=== PATIENT | male | born 1935 | race Caucasian/White ===

== ENCOUNTER 2017-05-28 12:03 | Inpatient (IN) | payer OTHER ==
[2017-05-28] MEDS ORDERED: FAMOTIDINE 20 MG/50 ML IVPB 50 ML IVPB ONE ×2 (12:20→13:07)
[2017-05-28] MEDS ORDERED: MAG HYDROX/AL HYDROX/SIMETH 30 ML UNIT-DOSE CUP PO ONE (12:20)
[2017-05-28 12:24] VITALS: BMI 33.2
--- NOTE | 2017-05-28 12:35 | PDOC ---
History of Present Illness - General Chief Complaint: Chest Pain Stated Complaint: CHEST PAIN Time Seen by Provider: 05/28/17 12:08 History Source: Patient Exam Limitations: No Limitations - History of Present Illness Initial Comments: 05/28/17 12:24 Patient is a 81M with history of IDDM, HTN, stent and pacemaker placement here today complaining of chest pain since sunday night. The pain is located underneath the sternum radiating to the epigastric area and is described as a burning pain. There is associated dry cough. There is no associated shortness of breath, nausea, vomiting, or diaphoresis. The pain onset at rest and has been waxing and waning. The pain does not increase with inspiration or activity. He denies leg swelling, leg pain, and hemoptysis. Past History - Past Medical History Allergies/Adverse Reactions: Allergies Allergy/AdvReac Type Severity Reaction Status Date / Time No Known Drug Allergies Allergy Verified 02/25/16 16:27 Home Medications: Ambulatory Orders Allopurinol [Zyloprim -] 100 mg PO DAILY 02/25/16 Aspirin [Ecotrin] 81 mg PO DAILY 02/25/16 Atorvastatin Ca [Lipitor] 40 mg PO HS 02/25/16 Cholecalciferol (Vitamin D3) [Vitamin D3] 2,000 unit PO DAILY 02/25/16 Cyanocobalamin [Vitamin B12 -] 1,000 mcg PO DAILY 02/25/16 Glyburide 5 mg PO DAILY 02/25/16 Metformin HCl [Metformin HCl ER] 500 mg PO DAILY 02/25/16 Metoprolol Succinate [Toprol Xl -] 50 mg PO DAILY 02/25/16 Ramipril 10 mg PO DAILY 02/25/16 Insulin Lispro Protamin/Lispro [Humalog Mix 75-25 Vial] 20 unit SQ HS 05/28/17 Insulin Lispro Protamin/Lispro [Humalog Mix 75-25 Vial] 30 unit SQ DAILY Anemia: No Asthma: No Cancer: Yes (COLON; KIDNEY) Cardiac Disorders: Yes (PPM, STENT, ?TN) CVA: No COPD: No CHF: No Dementia: No Diabetes: Yes GI Disorders: Yes (HEMORRHOIDS) Disorders: No HTN: Yes Hypercholesterolemia: Yes Liver Disease: No Seizures: No Thyroid Disease: No - Surgical History Abdominal Surgery: Yes (COLON RESECTION) Appendectomy: No Cardiac Surgery: Yes (STENT X1) Cholecystectomy: No GI Surgery: Yes (COLON RESECTION) Lung Surgery: No Neurologic Surgery: No Orthopedic Surgery: Yes (BILATERA; KNEES) - Psycho/Social/Smoking Cessation Hx Anxiety: No Suicidal Ideation: No Smoking History: Never smoked Have you smoked in the past 12 months: No Hx Alcohol Use: Yes (RARE) Drug/Substance Use Hx: No Substance Use Type: None Hx Substance Use Treatment: No Review of Systems - Review of Systems Comments:: 05/28/17 12:36 GENERAL/CONSTITUTIONAL: No fever or chills. No weakness. HEAD, EYES, EARS, NOSE AND THROAT: No change in vision. No sore throat. CARDIOVASCULAR: Positive for substernal chest pain. Negative for shortness of breath RESPIRATORY: Positive for cough. Negative for wheezing, or hemoptysis. GASTROINTESTINAL: No nausea, vomiting, diarrhea or constipation. GENITOURINARY: No dysuria, frequency, or change in urination. SKIN: No rash NEUROLOGIC: No headache, loss of consciousness, or change in strength/sensation. ALLERGIC/IMMUNOLOGIC: No hives or skin allergy. *Physical Exam - Vital Signs Last Vital Signs Temp Pulse Resp BP Pulse Ox 97.6 F 73 16 150/90 95 05/28/17 12:07 05/28/17 12:07 05/28/17 12:07 05/28/17 12:07 05/28/17 12:07 - Physical Exam Comments: 05/28/17 12:36 GENERAL: Awake, alert, and fully oriented, in no acute distress HEAD: No signs of trauma, normocephalic, atraumatic EYES: EOMI, sclera anicteric, conjunctiva clear ENT: Auricles normal inspection, hearing grossly normal, nares patent, oropharynx clear without exudates. Moist mucosa LUNGS: No distress, speaks full sentences, clear to auscultation bilaterally HEART: Regular rate and rhythm, normal S1 and S2, no murmurs, rubs or gallops, peripheral pulses normal and equal bilaterally. ABDOMEN: Soft, nontender, normoactive bowel sounds. No guarding, no rebound. No masses EXTREMITIES: Normal inspection, Normal range of motion, trace edema to mid- yoder. No clubbing or cyanosis. NEUROLOGICAL: Cranial nerves II through XII grossly intact. Normal speech, no focal sensorimotor deficits. Hearing aide dependent SKIN: Warm, Dry, normal turgor, no rashes or lesions noted. ED Treatment Course - LABORATORY CBC & Chemistry Diagram: 05/28/17 12:21 05/28/17 12:21 - RADIOLOGY Radiology Studies Ordered: Category Date Time Status CHEST X-RAY PORTABLE* [RAD] Stat Radiology 05/28/17 12:19 Ordered Medical Decision Making - Medical Decision Making 05/28/17 12:37 81M with cardiac history and IDDM here today complaining of chest pain. Vital signs normal and stable. Differential diagnosis includes, but is not limited to : gastritis, acs, arrhythmia, CHF. Suspect, given patients exam and history, that this is most likely gastritis. Will treat with maalox and pepcid. Will do ACS workup. EKG shows atrial paced rhythm, normal rate, normal axis, no t wave abnormalities , normal pr and qtc intervals. 05/28/17 13:26 Pain not relieved with maalox and pepcid. Trop .65. BP 128/80. Given 1g mg, ASA 162, nitro and heparin 05/28/17 18:02 Nitro and heparin drip started. Transferred to [facility]. *DC/Admit/Observation/Transfer Diagnosis at time of Disposition: Elevated troponin I level - Discharge Dispostion Condition at time of disposition: Stable Admit: Yes - Referrals Referrals: Deshaun Kapadia MD [Primary Care Provider] -
[2017-05-28 12:48] LABS: INR 1.06 (0.82-1.09); PROTHROMBIN TIME (PATIENT) 11.8 SEC (10.2-13.0)
[2017-05-28 12:52] LABS: ALBUMIN 3.6 g/dl (3.5-5.0); ALK PHOS 92 U/L (32-92); ANION GAP 10 (8-16); BILIRUBIN,TOTAL 0.9 mg/dl (0.2-1.0); CO2 25 mmol/L (22-28); CPK 192 IU/L (39-308); CREATININE 1.6 mg/dl (0.6-1.3); MAGNESIUM 1.5 mg/dL (1.8-2.4); SGOT/AST 30 U/L (10-42); SGPT/ALT 34 U/L (10-40); TOT PROT 6.8 g/dl (6.4-8.3)
[2017-05-28 12:54] LABS: GLUCOSE,RANDOM 523 mg/dl (74-106)
[2017-05-28 12:55] LABS: BASOPHIL 0.3 % (0-2.0); EOSINOPHIL 2.8 % (0-4.5); MCHC 34.7 g/dl (32.0-35.9); MEAN CELL VOLUME 89.5 fl (80-96); MEAN PLT VOLUME 8.9 fl (7.5-11.1); NEUTROPHILS 69.1 % (42.8-82.8); PLATELET COUNT 155 K/MM3 (134-434); RDW 13.3 % (11.9-15.9); WHITE BLOOD COUNT 7.8 K/mm3 (4.0-10.8)
--- NOTE | 2017-05-28 13:05 | PDOC ---
Attending Attestation - Resident Resident Name: LeobardocaterinaElia - ED Attending Attestation I have performed the following: I have examined & evaluated the patient, The case was reviewed & discussed with the resident, I agree w/resident's findings & plan, Exceptions are as noted - HPI HPI: 05/28/17 13:04 81 yo M h/o DM, HTN, HLD He presents to the ER accompanied by due to chest pain Symptoms were initially intermittent and small (2-3/10) on Sunday and Sunday Symptoms resolved Today at approximately 10 am he noted a recurrence of his chest pain Pt states pain is stronger and is constant No radiation to the back or jaw No shortness of breath No diaphoresis No fevers, chills, cough 05/28/17 15:14 - Physicial Exam PE: 05/28/17 13:04 RRR CTA Epigastrium non tender to palpation - Medical Decision Making 05/28/17 13:37 Laboratory Tests 05/28/17 12:21 BUN 29 H Creatinine 1.6 H Troponin I 0.65 H* Call placed to Cardiology SLN given Will initiate heparin CXR: nml mediastinum, ? retrocardiac opacity (no symptoms of pneumonia) Cardiology requests transfer to tele at [facility] 05/28/17 14:07 Call placed to Steffi Awaiting call back 05/28/17 15:[address] Reyes Admit to his service Telemetry (per Dr Raines's recommendation) 05/28/17 16:[address] Reyes's office He would like patient to now be admitted to the hospitalist service case reviewed with Dr. riddle and Hillary I have requested that this patient's PE and troponin be followed up closely Discharge Disposition - Diagnosis Elevated troponin I level - Discharge Dispostion Condition at time of disposition: Stable Last Admission D/C Date: 10/28/12 Admit: Yes - Referrals Critical Care Total Critical Care Time (in minutes): 60 Critical Care Statement: The care of this patient involved high complexity decision making to prevent further life threatening deterioration of the patient 's condition and/or to evaluate & treat vital organ system(s) failure or risk of failure.
[2017-05-28] MEDS ORDERED: MAG HYDROX/AL HYDROX/SIMETH 30 ML UNIT-DOSE CUP ONE (13:07)
[2017-05-28 13:08] LABS: TROPONIN I 0.65 ng/ml (0.00-0.05)
[2017-05-28] MEDS ORDERED: ASPIRIN 81 MG CHEWABLE TABLETS PO ONE (13:08)
[2017-05-28] MEDS ORDERED: MAGNESIUM SULF 50% (8.12 MEQ/2 ML-1 GM VIAL) IVPB ONE ×2 (13:16→17:56)
[2017-05-28] MEDS ORDERED: ASPIRIN 81 MG CHEWABLE TABLETS ONE (13:17)
[2017-05-28] MEDS ORDERED: NITROGLYCERIN SUBLINGUAL 1/150 0.4 MG TAB ONE ×3 (13:31→13:55)
[2017-05-28] MEDS ORDERED: HEPARIN - 25,000 UNIT in SODIUM CHLORIDE 495 ML IV SCH (13:45)
[2017-05-28] MEDS ORDERED: HEPARIN NA (PORCINE) 5,000 UNITS/ML 1ML VIAL ONE (13:49)
[2017-05-28] MEDS ORDERED: HEPARIN INFUSION - 500 ML IVPB ONE (13:49)
[2017-05-28] MEDS ORDERED: INSULIN REGULAR HUMAN 100 UNITS/ML *VIAL IVPUSH ONE (13:57)
[2017-05-28] MEDS ORDERED: HEPARIN NA (PORCINE) 5,000 UNITS/ML 1ML VIAL IVPUSH ONE (13:58)
[2017-05-28] MEDS ORDERED: ATORVASTATIN CA 80 MG TABLET (FP) PO ONE (14:08)
[2017-05-28] MEDS ORDERED: ATORVASTATIN CA 80 MG TABLET (FP) ONE (14:12)
[2017-05-28] MEDS ORDERED: INSULIN REGULAR HUMAN 100 UNITS/ML *VIAL ONE (14:13)
[2017-05-28] MEDS ORDERED: NITROGLYCERIN 25MG/D5W 250ML 250 ML IVPB SCH (14:15)
[2017-05-28] MEDS: NITROGLYCERIN IVPB SCH (14:25)
[2017-05-28] MEDS: DEXTROSE IVPB SCH (14:25)
[2017-05-28] MEDS ORDERED: WATER IVPB ONE ×2 (14:33→14:36)
[2017-05-28] MEDS ORDERED: DEXTROSE 5% IVPB ONE ×2 (14:33→14:36)
[2017-05-28] MEDS ORDERED: NITROGLYCERIN IVPB ONE ×2 (14:33→14:36)
--- NOTE | 2017-05-28 14:47 | CON.CARD ---
Consult Consult Specialty:: Cardiology Referred by:: Deshaun Kapadia MD Reason for Consultation:: Chest pain, subendocardial ischemia - History of Present Illness Chief Complaint: Chest and epigastric discomfort History of Present Illness: 81 yo male h/o CAD s/p [place], PCI (Stent), angina pectoris, diastolic dysfunction, sick sinus syndrome post PPM, HTN/HCVD, hyperlipidemia, type 2 DM, CKD, anemia presented to [facility] with non-radiating retrosternal and epigastric burning without associated dyspnea, near or true syncope, orthopnea, PND, LE edema, palpitations starting Sunday, trop 0.65. - History Source History Provided By: Patient Limitations to Obtaining History: No Limitations - Past Medical History Cardio/Vascular: Yes: CAD, HTN, Hyperlipdemia, [place] Renal/: Yes: Renal Inusuff Endocrine: Yes: Diabetes Mellitus - Past Surgical History Past Surgical History: Yes: Stent - Alcohol/Substance Use Hx Alcohol Use: Yes (RARE) - Smoking History Smoking history: Never smoked Have you smoked in the past 12 months: No Home Medications - Allergies Allergies/Adverse Reactions: Allergies Allergy/AdvReac Type Severity Reaction Status Date / Time No Known Drug Allergies Allergy Verified 02/25/16 16:27 - Home Medications Home Medications: Ambulatory Orders Allopurinol [Zyloprim -] 100 mg PO DAILY 02/25/16 Aspirin [Ecotrin] 81 mg PO DAILY 02/25/16 Atorvastatin Ca [Lipitor] 40 mg PO HS 02/25/16 Cholecalciferol (Vitamin D3) [Vitamin D3] 2,000 unit PO DAILY 02/25/16 Cyanocobalamin [Vitamin B12 -] 1,000 mcg PO DAILY 02/25/16 Glyburide 5 mg PO DAILY 02/25/16 Metformin HCl [Metformin HCl ER] 500 mg PO DAILY 02/25/16 Metoprolol Succinate [Toprol Xl -] 50 mg PO DAILY 02/25/16 Ramipril 10 mg PO DAILY 02/25/16 Insulin Lispro Protamin/Lispro [Humalog Mix 75-25 Vial] 20 unit SQ HS 05/28/17 Insulin Lispro Protamin/Lispro [Humalog Mix 75-25 Vial] 30 unit SQ DAILY Review of Systems - Review of Systems Cardiovascular: reports: Chest Pain Vital Signs: Vital Signs Temperature 97.6 F 05/28/17 12:07 Pulse Rate 77 09/11/17 14:25 Respiratory Rate 23 05/28/17 14:25 Blood Pressure 122/86 05/28/17 14:25 O2 Sat by Pulse Oximetry (%) 96 05/28/17 14:25 Constitutional: Yes: No Distress, Calm Neck: Yes: Supple Respiratory: Yes: Regular, CTA Bilaterally Gastrointestinal: Yes: Normal Bowel Sounds, Soft, Abdomen, Obese Cardiovascular: Yes: Regular Rate and Rhythm JVD: No Carotid Bruit: No Heart Sounds: Yes: S1, S2 Edema: No - Other Data Labs, Other Data: CBC, BMP 05/28/17 12:21 05/28/17 12:21 INR, PTT INR 1.06 (0.82-1.09) 05/28/17 12:21 Troponin, BNP 05/28/17 12:21 Troponin I 0.65 H* Troponin, BNP 05/28/17 12:21 Troponin I 0.65 H* A-V paced @ 73 Imaging - Results Chest X-ray: Report Reviewed (LLL retrocardiac opacity, mild pulm venous congestion) Problem List - Problems (1) Coronary artery disease Code(s): I25.10 - ATHSCL HEART DISEASE OF [place] CORONARY ARTERY W/O ANG PCTRS Qualifiers: Coronary Disease-Associated Artery/Lesion type: [place] artery [place] vs. transplanted heart: [place] heart Associated angina: with unstable angina Qualified Code(s): I25.110 - Atherosclerotic heart disease of [place] coronary artery with unstable angina pectoris (2) S/P coronary artery stent placement Code(s): Z95.5 - PRESENCE OF CORONARY ANGIOPLASTY IMPLANT AND GRAFT (3) Unstable angina pectoris Code(s): I20.0 - UNSTABLE ANGINA (4) Subendocardial ischemia Code(s): I24.8 - OTHER FORMS OF ACUTE ISCHEMIC HEART DISEASE (5) Diastolic dysfunction without heart failure Code(s): I51.9 - HEART DISEASE, UNSPECIFIED (6) Hyperlipidemia LDL goal <70 Code(s): E78.5 - HYPERLIPIDEMIA, UNSPECIFIED (7) Type 2 diabetes mellitus Code(s): E11.9 - TYPE 2 DIABETES MELLITUS WITHOUT COMPLICATIONS Qualifiers: Chronic kidney disease stage: stage 3 (moderate) (8) Pacemaker Code(s): Z95.0 - PRESENCE OF CARDIAC PACEMAKER (9) SSS (sick sinus syndrome) Code(s): I49.5 - SICK SINUS SYNDROME (10) Chronic kidney disease (CKD) Code(s): N18.9 - CHRONIC KIDNEY DISEASE, UNSPECIFIED Qualifiers: Chronic kidney disease stage: stage 3 (moderate) Qualified Code(s): N18.3 - Chronic kidney disease, stage 3 (moderate) (11) Hypertensive cardiovascular disease Code(s): I11.9 - HYPERTENSIVE HEART DISEASE WITHOUT HEART FAILURE Qualifiers: Heart failure presence: without heart failure Qualified Code(s): I11.9 - Hypertensive heart disease without heart failure Assessment/Plan 1. Chest pain with CAD h/o PCI (stent), unstable angina, subendocardial ischemic injury 2. Diastolic dysfunction without failure 3. Sick sinus syndrome post PPM ([employer]) 4. HTN/HCVD 5. Mixed hyperlipidemia 6. Type 2 DM 7. CKD Stage IIIB P:1. Cycle cardiac enzymes to document peak, check BNP, TSH, lipid profile, Ha1c 2. Persantine Myoview to evaluate severity of CAD 3. Echocardiogram to assess ventricular and valve function 4. Placed on heparin gtt and Plavix 75 qd, continue Toprol XL 50 qd, ASA 81 qd, Lipitor 40 qd, hold Altace pending renal stabilization 5. May require LHC +/- PCI depending on degree of ischemia 6. Thank you for consultative opportunity
[2017-05-28] MEDS ORDERED: CLOPIDOGREL BISULFATE 75 MG TABLET (FP) PO SCH (15:00)
[2017-05-28] MEDS ORDERED: METOPROLOL SUCCINATE 50 MG TAB.SR.24H (FP) PO SCH (15:00)
[2017-05-28] MEDS ORDERED: HEMOQUE TEST 1 EACH EACH ONE ×2 (15:11→15:17)
[2017-05-28] MEDS ORDERED: NITROGLYCERIN IVPB SCH (15:15)
[2017-05-28] MEDS ORDERED: DEXTROSE IVPB SCH (15:15)
[2017-05-28] MEDS ORDERED: METOPROLOL SUCCINATE 50 MG TAB.SR.24H (FP) ONE (15:35)
[2017-05-28] MEDS ORDERED: CLOPIDOGREL BISULFATE 75 MG TABLET (FP) ONE (15:40)
--- NOTE | 2017-05-28 17:39 | PDOC ---
Heart Score/ECG Review - History History: Highly suspicious - Electrocardiogram EKG: Normal - Age Age: >/= 65 - Risk Factors Risk Factors Heart Score: Yes Hx Hypertension, Yes Hx Diabetes, Yes Hx Obesity Based on the list above the patient has:: >/=3 risk factors or Hx atherosclerotic disease - Troponin Troponin: >/=3x normal limit - Score Heart Score - Total: 8 ED Treatment Course - LABORATORY CBC & Chemistry Diagram: 05/28/17 12:21 05/28/17 12:21 - ADDITIONAL ORDERS Additional order review: Laboratory Results 05/28/17 05/28/17 05/28/17 15:23 12:56 12:21 INR PTT (Actin FS) Sodium 130 L Potassium 4.2 Chloride 95 L Carbon Dioxide 25 Anion Gap 10 BUN 29 H Creatinine 1.6 H Creat Clearance w eGFR 41.90 POC Glucometer [phone] Random Glucose 523 H* D Calcium 9.0 Magnesium 1.5 L Total Bilirubin 0.9 D AST 30 D ALT 34 D Alkaline Phosphatase 92 D Creatine Kinase 192 Creatine Kinase Index 4.9 CK-MB (CK-2) 9.411 H Troponin I 0.65 H* Total Protein 6.8 Albumin 3.6 Acetone, Qual Negative 05/28/17 05/28/17 12:21 12:20 INR 1.06 PTT (Actin FS) 27.5 Sodium Potassium Chloride Carbon Dioxide Anion Gap BUN Creatinine Creat Clearance w eGFR POC Glucometer Random Glucose Calcium Magnesium Total Bilirubin AST ALT Alkaline Phosphatase Creatine Kinase Creatine Kinase Index CK-MB (CK-2) Troponin I Total Protein Albumin Acetone, Qual 05/28/17 05/28/17 15:23 12:21 RBC 5.04 MCV 89.5 MCHC 34.7 RDW 13.3 MPV 8.9 Neutrophils % 69.1 Lymphocytes % 17.5 Monocytes % 10.3 H Eosinophils % 2.8 Basophils % 0.3 POC Glucometer [phone] - Medications Given in the ED: ED Medications Discontinued Medications Generic Name Dose Route Start Last Admin Trade Name Freq PRN Reason Stop Dose Admin Al Hydroxide/Mg Hydroxide 30 ml 05/28/17 12:20 05/28/17 13:10 Mylanta Oral Suspension - PO 05/28/17 12:21 30 ml ONCE ONE Administration Aspirin 162 mg 05/28/17 13:08 05/28/17 13:25 Asa - PO 05/28/17 13:09 162 mg ONCE ONE Administration Atorvastatin Calcium 80 mg 05/28/17 14:08 05/28/17 14:15 Lipitor - PO 05/28/17 14:09 80 mg ONCE ONE Administration Clopidogrel Bisulfate 75 mg 05/28/17 15:00 05/28/17 15:41 Plavix - PO 75 mg DAILY ROOPA Administration Heparin Sodium (Porcine) 5,000 unit 05/28/17 13:58 05/28/17 13:58 Heparin - IVPUSH 05/28/17 13:59 5,000 unit NOW ONE Administration Famotidine/Sodium Chloride 50 mls @ 100 mls/hr 05/28/17 12:20 05/28/17 13:10 Pepcid 20 Mg Premixed Ivpb - IVPB 05/28/17 12:49 100 mls/hr ONCE ONE Administration Heparin Sodium (Porcine) 25, 500 mls @ 20 mls/hr 05/28/17 13:45 05/28/17 13:58 000 unit/ Sodium Chloride IV 20 mls/hr TITR ROOPA Administration Protocol 1,000 UNIT/HR Nitroglycerin/Dextrose 250 mls @ 6 mls/hr 05/28/17 14:15 05/28/17 15:42 Nitroglycerin 25mg/D5w 250ml IVPB Not Given TITR ROOPA 10 MCG/MIN Nitroglycerin 50,000 mcg/ 1,000 mls @ 12 mls/hr 05/28/17 14:33 05/28/17 14:57 Dextrose IVPB 06/01/17 01:52 Not Given NOW ONE 10 MCG/MIN Nitroglycerin 50,000 mcg/ 250 mls @ 3 mls/hr 05/28/17 14:36 05/28/17 14:15 Dextrose IVPB 06/01/17 01:52 3 mls/hr NOW ONE Administration 10 MCG/MIN Nitroglycerin/Dextrose 250 mls @ 3 mls/hr 05/28/17 15:15 05/28/17 15:44 Nitroglycerin 50mg/D5w 250ml IVPB Not Given TITR ROOPA 10 MCG/MIN Nitroglycerin/Dextrose 250 mls @ 3 mls/hr 05/28/17 15:20 05/28/17 14:25 Nitroglycerin 50mg/D5w 250ml IVPB 3 mls/hr TITR ROOPA Administration 10 MCG/MIN Insulin Human Regular 5 units 05/28/17 13:57 05/28/17 14:09 Novolin R Vial *For Ivpush Or Iv Drip Only* IVPUSH 05/28/17 13:58 5 units ONCE ONE Administration Magnesium Sulfate 1 gm 05/28/17 13:16 05/28/17 13:26 Magnesium Sulfate IVPB 05/28/17 13:17 1 gm ONCE ONE Administration Metoprolol Succinate 50 mg 05/28/17 15:00 05/28/17 15:39 Toprol Xl - PO 50 mg DAILY ROOPA Administration Medical Decision Making - Medical Decision Making 05/28/17 17:38 Will admit to hospitalist service Case reviewed with Dr Carter *DC/Admit/Observation/Transfer Diagnosis at time of Disposition: Elevated troponin I level - Discharge Dispostion Condition at time of disposition: Good Admit: Yes - Referrals Referrals: Deshaun Kapadia MD [Primary Care Provider] - - Patient Instructions - Post Discharge Activity
[2017-05-28] MEDS ORDERED: HEPARIN NA (PORCINE) 5,000 UNITS/ML 1ML VIAL IVPUSH PRN (18:09)
--- NOTE | 2017-05-28 18:15 | HP ---
CHIEF COMPLAINT:Chest pain PCP:Eric market news reporter: Mariela HISTORY OF PRESENT ILLNESS: 81M extensive PMH including CAD s/p [place] s/p PCI with stent x1 17 years ago, sick sinus syndrome s/p PPM, angina pectoris, distolic dysfunction HTN HLD presents to the ED with sub sternal chest pain. He states the pain started sunday morning. Sunday morning he woke up had breakfast and starting having the chest pain. He states he went to the store and it got better then he was reading the newspaper when his pain started again. His pain has been fluctuating since then. Today his pain got significantly worse and this prompted him to come to the ED. He denies radiation of the pain to the arm or jaw. He states at sometimes the pain radiates downwards to the epigastrium. He states when he layed down flat it relieved his pain for a short while. He denies PND or recent lower extremity edema. denies orthopnea. He denies nausea vomiting fevers chills or shortness of breath. Denies urinary symptoms or change in bowel habits. Denies syncopal or pre-syncopal symptoms denied palpitations and states he only had chest pain since sunday. (Patient told market news reporter had palpitations since sunday) He states 2 weeks ago he URI/ viral symptoms which has resolved per patient. The patient is currently still having chest pain. In ED found to have NSTEMI with elevated troponin and hypomagnesemia. He was given magnesium started on heparin gtt and nitroglycerin gtt for intractable chest pain. Seen by cardiology who recommended hep gtt and continuing beta isidoro statin anti platelets echo and persantine myoview. CXR showed possible left retrocardiac infiltrate and pulmonary vascular congestion. Recent Travel:Denies PAST MEDICAL HISTORY:as per above including obstructive sleep apnea obesity CKD colon ca renal ca hypertensive cardiovascular disease PAST SURGICAL HISTORY:s/p colon cancer resection. s/p right nephrectomy Social History: Smoking:in his teens quit since then Alcohol:Denies Drugs: Denies Family History:father at age 93 from liver Ca mother around age 79 from complications of alzheimer's per Allergies No Known Drug Allergies Allergy (Verified 02/25/16 16:27) HOME MEDICATIONS: Home Medications Medication Instructions Recorded Allopurinol [Zyloprim -] 100 mg PO DAILY 02/25/16 Aspirin [Ecotrin] 81 mg PO DAILY 02/25/16 Atorvastatin Ca [Lipitor] 40 mg PO HS 02/25/16 Cholecalciferol (Vitamin D3) 1,000 unit PO DAILY 02/25/16 [Vitamin D3] Cyanocobalamin [Vitamin B12 -] 1,000 mcg PO DAILY 02/25/16 Glyburide 5 mg PO DAILY 02/25/16 [place] 3 ethyl esters 1 gm po daily Metoprolol Succinate [Toprol Xl -] 50 mg PO DAILY 02/25/16 Ramipril 10 mg PO DAILY 02/25/16 Insulin Lispro Protamin/Lispro 20 unit SQ HS 05/28/17 [Humalog Mix 75-25 Vial] Insulin Lispro Protamin/Lispro 30 unit SQ DAILY 05/28/17 [Humalog Mix 75-25 Vial] REVIEW OF SYSTEMS CONSTITUTIONAL: Absent: fever, chills, diaphoresis, generalized weakness, malaise, loss of appetite, weight change HEENT: Absent: rhinorrhea, nasal congestion, throat pain, throat swelling, difficulty swallowing, mouth swelling, ear pain, eye pain, visual changes CARDIOVASCULAR: Absent: , syncope, palpitations, irregular heart rate, lightheadedness, peripheral edema Present: chest pain RESPIRATORY: Absent: cough, shortness of breath, dyspnea with exertion, orthopnea, wheezing, stridor, hemoptysis GASTROINTESTINAL: Absent: abdominal pain, abdominal distension, nausea, vomiting, diarrhea, constipation, melena, hematochezia GENITOURINARY: Absent: dysuria, frequency, urgency, hesitancy, hematuria, flank pain, genital pain MUSCULOSKELETAL: Absent: myalgia, arthralgia, joint swelling, back pain, neck pain SKIN: Absent: rash, itching, pallor HEMATOLOGIC/IMMUNOLOGIC: Absent: easy bleeding, easy bruising, lymphadenopathy, frequent infections ENDOCRINE: Absent: unexplained weight gain, unexplained weight loss, heat intolerance, cold intolerance NEUROLOGIC: Absent: headache, focal weakness or paresthesias, dizziness, unsteady gait, seizure, mental status changes, bladder or bowel incontinence PSYCHIATRIC: Absent: anxiety, depression, suicidal or homicidal ideation, hallucinations. PHYSICAL EXAMINATION GENERAL: Awake, alert, and fully oriented, in no acute distress. EYES: Pupils equal, round and reactive to light, extraocular movements intact EARS, NOSE, THROAT: Moist mucous membranes. NECK: Normal range of motion, supple without JVD LUNGS: Breath sounds equal, clear to auscultation bilaterally. No wheezes, and no crackles. HEART: Regular rate and rhythm, normal S1 and S2 without murmur. No JVD appreciated ABDOMEN: Soft, nontender, not distended, normoactive bowel sounds, no guarding, no rebound MUSCULOSKELETAL: Normal range of motion at all joints. No CVA tenderness. UPPER EXTREMITIES: 2+ pulses, warm, well-perfused. No cyanosis. No clubbing. No peripheral edema. LOWER EXTREMITIES: faint DP pulses, warm, well-perfused. No calf tenderness. Trace pitting edema L>R NEUROLOGICAL: Cranial nerves II-XII grossly intact. Normal speech. Laboratory Results - last 24 hr 05/28/17 05/28/17 05/28/17 12:20 12:21 12:21 WBC 7.8 RBC 5.04 Hgb 15.6 D Hct 45.1 MCV 89.5 MCH 31.0 MCHC 34.7 RDW 13.3 Plt Count 155 MPV 8.9 Neutrophils % 69.1 Lymphocytes % 17.5 Monocytes % 10.3 H Eosinophils % 2.8 Basophils % 0.3 INR 1.06 PTT (Actin FS) 27.5 Sodium Potassium Chloride Carbon Dioxide Anion Gap BUN Creatinine Creat Clearance w eGFR POC Glucometer Random Glucose Calcium Magnesium Total Bilirubin AST ALT Alkaline Phosphatase Creatine Kinase Creatine Kinase Index CK-MB (CK-2) Troponin I Total Protein Albumin Acetone, Qual 05/28/17 05/28/17 05/28/17 12:21 12:56 15:23 WBC RBC Hgb Hct MCV MCH MCHC RDW Plt Count MPV Neutrophils % Lymphocytes % Monocytes % Eosinophils % Basophils % INR PTT (Actin FS) Sodium 130 L Potassium 4.2 Chloride 95 L Carbon Dioxide 25 Anion Gap 10 BUN 29 H Creatinine 1.6 H Creat Clearance w eGFR 41.90 POC Glucometer [phone] Random Glucose 523 H* D Calcium 9.0 Magnesium 1.5 L Total Bilirubin 0.9 D AST 30 D ALT 34 D Alkaline Phosphatase 92 D Creatine Kinase 192 Creatine Kinase Index 4.9 CK-MB (CK-2) 9.411 H Troponin I 0.65 H* Total Protein 6.8 Albumin 3.6 Acetone, Qual Negative 05/28/17 18:14 WBC RBC Hgb Hct MCV MCH MCHC RDW Plt Count MPV Neutrophils % Lymphocytes % Monocytes % Eosinophils % Basophils % INR PTT (Actin FS) Sodium Potassium Chloride Carbon Dioxide Anion Gap BUN Creatinine Creat Clearance w eGFR POC Glucometer 239 Random Glucose Calcium Magnesium Total Bilirubin AST ALT Alkaline Phosphatase Creatine Kinase Creatine Kinase Index CK-MB (CK-2) Troponin I Total Protein Albumin Acetone, Qual CXR: mild pulmonary vascular congestion possible left retrocardiac infiltrate may represent pneumonia in the appropriate clinical setting. can get PA/Lateral if needed for better evaluation EKG: A-V Paced 11/09/2016 Echo: Normal LV size and fxn, mild LAE, mild AR, MR, NV, TR 03/07/2017 Regadenoson Myoview: Small to moderate inferior infarct with small thom-infarct ischemia, LVEF 62 Patient reports having underwent pharmacologic stress testing approximately 2 months ago, cardiology to obtain copy of study for review from office, further testing depending on clinical response. ASSESSMENT/PLAN: 81M with multiple medical problems presents to the ED with chest pain found to have an NSTEMI. chest pain-CAD with stent and [place] in past now with NSTEMI: history of angina pectoris Admit to telemetry heparin gtt trend troponins to document peak persantine myoview echo lipid panel lipitor HbA1c control fingerstick glucose TSH Plavix BNP aspirin restart metoprolol 50mg XL po daily cardiology consult appreciated cardiology to get records from office possible [facility] sick sinus syndrome: s/p PPM diastolic dysfunction/heart failure with preserved ejection fraction: f/u echo no need for diuretics at this time does not seem to be in exacerbation at this time HTN/Hypertensive cardiovascular disease: cotninue metoprolol 50mg po XL daily hold rampiril for now per cardiology until renal stabilization but Cr at baseline per EMR will consider restarting RONALDO tomorrow HLD: restart statin lipid profile DM2: restarted on glyburide per cardiology ISS ACHS BGM ACHS if BGM out of control will consider starting long acting basal insulin history of anemia: Hb 15.6 obsturctive sleep apnea: had 2 sleep studies supposed to sleep with CPAP at night patient does not use machine: used it 3 times and never used it again CKD: stage 3B Cr 1.6 seems to be at baseline per EMR will continue to trend Cr Obesity: counselled on weight loss and benefits of light exercise history of renal Ca and Colon Ca s/p colon surgery and right nephrectomy: not currently active outpatient follow up. Possible GERD: Pepcid BID PPx: SCDs/heparin gtt Pepcid BID PT consult FEN: No IVF hypomagnesemia: given 2GM IV Magnesium and will recheck electrolytes in AM low sodium/diabetic diet NPO past midnight for stress test Case discussed with attending Dr. Gerardo Home meds verified with patient Visit type - Emergency Visit Emergency Visit: Yes ED Registration Date: 05/28/17 Care time: The patient presented to the Emergency Department on the above date and was hospitalized for further evaluation of their emergent condition. - New Patient This patient is new to me today: Yes Date on this admission: 05/28/17 - Critical Care Critical Care patient: No
[2017-05-28] MEDS: glyBURIDE 5 MG TABLET (UD) PO SCH (18:30)
[2017-05-28] MEDS: HEPARIN - 25,000 UNIT in SODIUM CHLORIDE 495 ML IV SCH ×2 (18:30→21:14)
[2017-05-28] MEDS: INSULIN SLIDING SCALE (NOVOLOG) 1 VIAL SQ SCH ×2 (18:31→22:00)
--- NOTE | 2017-05-28 19:10 | PN ---
Teaching Attending Note Name of Resident: Ramon Carter ATTENDING PHYSICIAN STATEMENT I saw and evaluated the patient. I reviewed the resident's note and discussed the case with the resident. I agree with the resident's findings and plan as documented. SUBJECTIVE: 79 yo M with Pmhx. of CAD s/p NH w PCI Stent X1 17 years ago, Sick Sinus Syndrome s/p PPM, angina pectoria, dystolic dysfunction, HTN, HLD, who presents with chest pain at [place] and was transferred to [facility]. Notes pain started on Sunday and has been intermittent since then. States that occasionally pain radiates to his abdomen. Notes chest pain is improved. No shortness of breath. No cough or sputum production. No fevers or chills. OBJECTIVE: Physical: VS: Vital Signs Period Temp Pulse Resp BP Sys/Mon Pulse Ox Last 24 Hr 97.6 F-97.8 F 71-79 16-23 106-150/57-90 94-96 GEN: NAD, resting in bed HEENT: NCAT, PERRL, throat without erythema or exudates CARD: RRR S1, S2 RESP: CTAB ABD:BSX4, NTD to palpation EXT: - C/C/E CBCD WBC 7.8 K/mm3 (4.0-10.8) 05/28/17 12:21 RBC 5.04 M/mm3 (4.00-5.60) 05/28/17 12:21 Hgb 15.6 GM/dl (11.7-16.9) D 05/28/17 12:21 Hct 45.1 % (35.4-49) 05/28/17 12:21 MCV 89.5 fl (80-96) 05/28/17 12:21 MCHC 34.7 g/dl (32.0-35.9) 05/28/17 12:21 RDW 13.3 % (11.9-15.9) 05/28/17 12:21 Plt Count 155 K/MM3 (134-434) 05/28/17 12:21 MPV 8.9 fl (7.5-11.1) 05/28/17 12:21 CMP Sodium 130 mmol/L (136-145) L 05/28/17 12:21 Potassium 4.2 mmol/L (3.5-5.1) 05/28/17 12:21 Chloride 95 mmol/L (98-107) L 05/28/17 12:21 Carbon Dioxide 25 mmol/L (22-28) 05/28/17 12:21 Anion Gap 10 (8-16) 05/28/17 12:21 BUN 29 mg/dl (7-18) H 05/28/17 12:21 Creatinine 1.6 mg/dl (0.6-1.3) H 05/28/17 12:21 Creat Clearance w eGFR 41.90 (>60) 05/28/17 12:21 Random Glucose 523 mg/dl (74-106) H* D 05/28/17 12:21 Calcium 9.0 mg/dl (8.4-10.2) 05/28/17 12:21 Total Bilirubin 0.9 mg/dl (0.2-1.0) D 05/28/17 12:21 AST 30 U/L (10-42) D 05/28/17 12:21 ALT 34 U/L (10-40) D 05/28/17 12:21 Alkaline Phosphatase 92 U/L (32-92) D 05/28/17 12:21 Total Protein 6.8 g/dl (6.4-8.3) 05/28/17 12:21 Albumin 3.6 g/dl (3.5-5.0) 05/28/17 12:21 CARDIAC ENZYMES Creatine Kinase 192 IU/L (39-308) 05/28/17 12:21 Troponin I 0.65 ng/ml (0.00-0.05) H* 05/28/17 12:21 EKG- 93 AV Paced CXR: Mild pulmonary vasc. congestion LLL ? Opacity ASSESSMENT AND PLAN: 81 yo F with pmhx of CAD s/p NH PCI w stent X1, PPM SSS, angina, Diastolic Dysfxn, HTN, HLD, who presents with chest pain being admitted for NSTEMI 1.) NSTEMI - Plavix, ASA, Hep gtt. - C/W BB, 02, Nitro gtt - Trend Trop/Ekg - Monitor on tele - FU TSH, Lipid Panel, A1c - Statin - NPO - Echo - Cardiology on Consult - Appreciate reccs 2.) CAD S/P NH - C/W meds 3.) DURAN on CKD - BAse Cr 1.4-1.5 - Hold Altace - Avoid Nephrotoxins 4.) DM II - RAISS - FS 5.) Hyponatremia - Monitor 6.) DVt Ppx - Low Risk - Hep. Gtt Place in [employer]
[2017-05-28] MEDS ORDERED: ATORVASTATIN CA 40 MG TABLET (FP) PO SCH (22:00)
[2017-05-28] MEDS: FAMOTIDINE 20 MG/50 ML IVPB 50 ML IVPB SCH (22:22)
[2017-05-29 00:26] LABS: TROPONIN I 14.32 ng/ml (0.00-0.05)
[2017-05-29 02:07] LABS: TROPONIN I 24.13 ng/ml (0.00-0.05)
--- NOTE | 2017-05-29 02:16 | HOSP ---
Physical Examination Vital Signs: Vital Signs Temperature 98.5 F 05/29/17 02:10 Pulse Rate 71 05/29/17 02:10 Respiratory Rate 20 05/29/17 02:10 Blood Pressure 105/59 05/29/17 02:10 O2 Sat by Pulse Oximetry (%) 94 L 05/28/17 21:03 Hospitalist Encounter Assessment: * Daytime resident signed out to follow up the troponin level. Initial troponin was 0.65, repeat troponin elevated to 14.1. Went to examine the patient. He was comfortably sleeping. When he woke up, he mentioned he has chest pain, located centrally, 2/10 in intensity, pressure in quality, non radiating, no aggravating or relieving factors. Denies sob, palpitation, cough, abdominal pain , nausea or vomiting. * Stat EKG was done which was found to be the same as prior EKG (no significant changes found), paced rhythm. * Call placed to Dr. White @ 2:18am, awaiting call back. * Loading dose of Plavix 300mg given stat. Vitals: BP: 118/67mmHg; RR-15 P:88 bpm Temp-98 F General: Elderly male, lying comfortably in bed, awake, alert, in no acute distress. Chest: B/L lungs clear, no added sounds CVS: Regular, S1, S2 , no murmu Abdomen: Soft, non tender, no organomegaly. Ext: No peripheral edema. A/P NSTEMI Continue Heparin drip, loading dose of aspirin and plavix given Trend troponin. Case discussed with Dr. López. Visit type - Emergency Visit Emergency Visit: Yes ED Registration Date: 05/28/17 Care time: The patient presented to the Emergency Department on the above date and was hospitalized for further evaluation of their emergent condition. - New Patient This patient is new to me today: Yes Date on this admission: 05/28/17 - Critical Care Critical Care patient: No
[2017-05-29] MEDS ORDERED: CLOPIDOGREL BISULFATE 300 MG TABLET PO ONE (02:23)
[2017-05-29] MEDS: glyBURIDE 5 MG TABLET (UD) PO SCH (06:06)
[2017-05-29] MEDS: INSULIN SLIDING SCALE (NOVOLOG) 1 VIAL SQ SCH ×4 (06:54→22:48)
--- NOTE | 2017-05-29 07:54 | PN ---
Progress Note (short form) - Note Progress Note: Chief Complaint: Events noted, notes reviewed, denies any further chest or epigastric discomfort, denies any dyspnea History of Present Illness: Seen and examined on telemetry. Events noted, notes reviewed, denies any further chest or epigastric discomfort, denies any dyspnea Troponin I and CPK levels noted, EKG noted paced rhythm Plan to proceed with [facility] coronary angiography, risk, benefits and alternatives were reviewed in detail Medications: Current Medications Aspirin (Ecotrin -) 81 mg PO DAILY [facility] Atorvastatin Calcium (Lipitor -) 40 mg PO HS [facility] Clopidogrel Bisulfate (Plavix -) 75 mg PO DAILY [facility] Glyburide (Diabeta -) 5 mg PO BID@0700,1630 [facility] Last Admin: 05/29/17 06:06 Dose: Not Given Heparin Sodium (Porcine) (Heparin -) 1,000 unit IVPUSH PRN PRN PRN Reason: Heparin Heparin Sodium (Porcine) (Heparin -) 5,000 unit IVPUSH PRN PRN PRN Reason: Heparin Nitroglycerin/Dextrose (Nitroglycerin 50mg/D5w 250ml) 250 mls @ 3 mls/hr IVPB TITR [place] PRN Reason: 10 MCG/MIN Last Admin: 05/28/17 14:25 Dose: 3 mls/hr Heparin Sodium (Porcine) 25, (000 unit/ Sodium Chloride) 500 mls @ 20 mls/hr IV TITR [place]; 1,000 UNIT/HR PRN Reason: Protocol Last Admin: 05/28/17 21:14 Dose: 20 mls/hr Famotidine/Sodium Chloride (Pepcid 20 Mg Premixed Ivpb -) 50 mls @ 100 mls/hr IVPB BID [facility] Last Admin: 05/28/17 22:22 Dose: 100 mls/hr Insulin Aspart (Novolog Vial Sliding Scale -) 1 vial SQ ACHS [place] PRN Reason: Protocol Last Admin: 05/29/17 06:54 Dose: 4 units Metoprolol Succinate (Toprol Xl -) 50 mg PO DAILY [facility] - Review of Systems Constitutional: denies: Chills, Fever Cardiovascular: As Noted Above Respiratory: denies: Cough or Sputum Production Gastrointestinal: denies: Nausea, Vomiting, Diarrhea, Constipation or Abdominal Discomfort Musculoskeletal: No symptoms Reported Neurological: denies: Dizziness or Headaches Vital Signs: Last Vital Signs Temp Pulse Resp BP Pulse Ox 98.2 F 72 14 114/70 94 L 05/29/17 09:00 05/29/17 09:00 05/29/17 09:00 05/29/17 09:00 05/28/17 21:03 Intake & Output 05/26/17 05/27/17 05/28/17 05/29/17 23:59 23:59 23:59 23:59 Intake Total 276 Output Total 800 Balance -524 Weight 225 lb Constitutional: No Distress, Calm Neck: Supple Negative JVD No Bruit Respiratory: Clear to A&P Bilaterally Cardiovascular: S1 S2 Regular Rate and Rhythm Grade 2/6 [place] Gastrointestinal: Soft Benign Normal Bowel Sounds Ext: No Edema Labs: Troponin, BNP 05/28/17 05/28/17 05/28/17 12:21 18:45 18:45 Troponin I 0.65 H* 14.32 H* B-Natriuretic Peptide 1943.90 H 05/29/17 05/29/17 05/29/17 01:00 07:00 07:00 Troponin I 24.13 H* D 25.80 H* 26.20 H* B-Natriuretic Peptide CBC, BMP 05/29/17 07:00 05/29/17 07:00 INR, PTT INR 1.06 (0.82-1.09) 05/28/17 12:21 Assessment/Plan ASSESSMENT: 1. CAD post PCI (stent), unstable angina, sub-endocardial ischemic/NSTEMI, plan to proceed 2. Diastolic dysfunction with class I NYHA classification LV congestive heart failure, compensated/euvolemic 3. Sick sinus syndrome post PPM ([employer]'s device) 4. HTN 5. Diabetes mellitus 6. Hypercholesterolemia, mixed dyslipidemia 7. CKD PLAN: 1. Continue Toprol XL 2. Add ACEI or ARBS unless it is absolutely contraindicated 3. Continue Heparin, ASA and Brilinta (D/C Plavix) 4. Continue Lipitor 5. Cancel MPI study and proceed with [facility]& coronary angiography for further evaluation of extent of CAD and possible intervention (plan to transfer to [facility] in AM) 6. Echocardiography to assess ventricular and valve functions Roland Guzman M.D.
[2017-05-29 08:30] LABS: BASOPHIL 0.7 % (0-2.0); EOSINOPHIL 1.8 % (0-4.5); MCH 30.1 pg (25.7-33.7); MCHC 33.6 g/dl (32.0-35.9); MEAN CELL VOLUME 89.6 fl (80-96); MEAN PLT VOLUME 8.8 fl (7.5-11.1); NEUTROPHILS 69.3 % (42.8-82.8); PLATELET COUNT 128 K/MM3 (134-434); RDW 14.5 % (11.9-15.9); WHITE BLOOD COUNT 8.6 K/mm3 (4.0-10.0)
[2017-05-29 09:08] LABS: ALBUMIN 3.1 g/dl (3.4-5.0); BILIRUBIN,TOTAL 0.8 mg/dL (0.2-1.0); CALCIUM 8.6 mg/dL (8.5-10.1); CREATININE 1.4 mg/dL (0.7-1.3); SGOT/AST 117 U/L (15-37); TOT PROT 6.4 g/dl (6.4-8.2)
[2017-05-29 09:12] LABS: ALK PHOS 88 U/L (45-117); ANION GAP 9 (8-16); CO2 28 mmol/L (21-32); GLUCOSE,RANDOM 224 mg/dL (74-106); MAGNESIUM 1.7 mg/dL (1.8-2.4); PHOSPHOROUS 2.2 mg/dL (2.5-4.9); SGPT/ALT 43 U/L (12-78)
[2017-05-29 09:25] LABS: TROPONIN I 26.2 ng/ml (0.00-0.05)
[2017-05-29] MEDS: FAMOTIDINE 20 MG/50 ML IVPB 50 ML IVPB SCH ×2 (09:57→22:49)
[2017-05-29] MEDS: ASPIRIN COATED 81 MG TABLET.EC PO SCH (09:57)
[2017-05-29] MEDS: METOPROLOL SUCCINATE 50 MG TAB.SR.24H (FP) PO SCH (09:57)
[2017-05-29] MEDS ORDERED: CLOPIDOGREL BISULFATE 75 MG TABLET (FP) PO SCH (10:00)
[2017-05-29] MEDS ORDERED: ASPIRIN 81 MG CHEWABLE TABLETS PO SCH (10:00)
[2017-05-29 10:15] LABS: INR 1.09 (0.82-1.09)
[2017-05-29 10:17] LABS: ACTIVATED PTT 34.6 SECONDS (26.9-34.4)
[2017-05-29] MEDS ORDERED: TICAGRELOR 60 MG TABLET PO SCH (10:45)
[2017-05-29] MEDS: HEPARIN - 25,000 UNIT in SODIUM CHLORIDE 495 ML IV SCH ×2 (10:59→18:35)
[2017-05-29] MEDS: HEPARIN NA (PORCINE) 5,000 UNITS/ML 1ML VIAL IVPUSH PRN (10:59)
--- NOTE | 2017-05-29 11:58 | PN ---
Progress Note (short form) - Note Progress Note: PULMONARY CONSULTATION DICTATED 05/29/17 IMP ACUTE NSTEMI CHF CKD ASHD S/P STENT L RETROCARDIC OPACITY H/O RCC S/P R NEPHRECTOMY SSS S/P PPM HTN DM PLAN O2 BETABLOCKERS CARDIAC CATH F/U CHEST X-RAY IF NO CHANGE SUGGEST CHEST CT MONITOR PLT CT DR VILLAGRAN Problem List - Problems (1) Chronic kidney disease (CKD) Code(s): N18.9 - CHRONIC KIDNEY DISEASE, UNSPECIFIED Qualifiers: Chronic kidney disease stage: stage 3 (moderate) Qualified Code(s): N18.3 - Chronic kidney disease, stage 3 (moderate) (2) Coronary artery disease Code(s): I25.10 - ATHSCL HEART DISEASE OF [place] CORONARY ARTERY W/O ANG PCTRS Qualifiers: Coronary Disease-Associated Artery/Lesion type: [place] artery [place] vs. transplanted heart: [place] heart Associated angina: with unstable angina Qualified Code(s): I25.110 - Atherosclerotic heart disease of [place] coronary artery with unstable angina pectoris (3) Diastolic dysfunction without heart failure Code(s): I51.9 - HEART DISEASE, UNSPECIFIED (4) Elevated troponin I level Code(s): R74.8 - ABNORMAL LEVELS OF OTHER SERUM ENZYMES (5) Hypertensive cardiovascular disease Code(s): I11.9 - HYPERTENSIVE HEART DISEASE WITHOUT HEART FAILURE Qualifiers: Heart failure presence: without heart failure Qualified Code(s): I11.9 - Hypertensive heart disease without heart failure (6) S/P coronary artery stent placement Code(s): Z95.5 - PRESENCE OF CORONARY ANGIOPLASTY IMPLANT AND GRAFT (7) SSS (sick sinus syndrome) Code(s): I49.5 - SICK SINUS SYNDROME (8) Type 2 diabetes mellitus Code(s): E11.9 - TYPE 2 DIABETES MELLITUS WITHOUT COMPLICATIONS Qualifiers: Chronic kidney disease stage: stage 3 (moderate) (9) NSTEMI (non-ST elevated myocardial infarction) Code(s): I21.4 - NON-ST ELEVATION (NSTEMI) MYOCARDIAL INFARCTION
--- NOTE | 2017-05-29 11:58 | EKG ---
Test Reason : Blood Pressure : / mmHG Vent. Rate : 069 BPM Atrial Rate : 069 BPM P-R Int : 132 ms QRS Dur : 200 ms QT Int : 474 ms P-R-T Axes : 048 -86 078 degrees QTc Int : 507 ms Atrial-sensed ventricular-paced rhythm V1 RHYTHM STRIPREVEALS ARTIFACT CANNOT ENTIRELY RULE OUT RUN OF WIDE COMPLEX TACHYCARDIA WHEN COMPARED WITH ECG OF 28-MAY-2017 12:08, VENT. RATE HAS DECREASED BY 4 BPM REPEAT EKG IF CLINICALLY INDICATED Confirmed by MARA ROBERTS MD ([id number]) on 05/29/2017 11:58:32 AM Referred By: Confirmed By:MARA ROBERTS MD
--- NOTE | 2017-05-29 12:11 | EKG ---
Test Reason : Blood Pressure : / mmHG Vent. Rate : 073 BPM Atrial Rate : 073 BPM P-R Int : 128 ms QRS Dur : 198 ms QT Int : 450 ms P-R-T Axes : 036 -83 086 degrees QTc Int : 495 ms Atrial-sensed ventricular-paced rhythm ABNORMAL ECG WHEN COMPARED WITH ECG OF 14-OCT-2012 10:52, VENT. RATE HAS DECREASED BY 12 BPM CLINICAL CORRELATION IS RECOMMENDED Confirmed by MARA ROBERTS MD ([id number]) on 05/29/2017 12:11:02 PM Referred By: KING Confirmed By:MARA ROBERTS MD
[2017-05-29] MEDS: RAMIPRIL 5 MG CAPSULE (FP) PO SCH (12:32)
--- NOTE | 2017-05-29 13:25 | CONS ---
PULMONARY CONSULTATION DATE OF CONSULTATION: 05/29/2017 REFERRING PHYSICIAN: Ashley Garcia MD HISTORY OF PRESENT ILLNESS: The patient is a 81-year-old white male with past medical history of ASHD status post [place], status post stent in 2000; angina pectoris; diastolic dysfunction; sick sinus syndrome status post permanent pacemaker; hypertension; hypertensive cardiovascular disease; hyperlipidemia; type 2 diabetes mellitus; chronic kidney disease; history of renal cell carcinoma status post right nephrectomy in 2005; anemia, presented to [facility] with complaint of 2-day history of intermittent chest pain. Patient states that he was doing well until Sunday when he started noticing some chest discomfort and pressure which lasted a few minutes and then subsided. Then, it happened again, lasting an hour. He went to a function on Sunday night and felt okay again. He woke up on Sunday morning, again having intermittent chest pain and pressure. He did not seek medical attention. On Sunday, he started developing severe chest pain. At which time, presented to his doctor and subsequently transferred to [facility] for further evaluation. Patient was noted to have elevated cardiac enzymes, evaluated by Cardiology. The patient is scheduled for a cardiac catheterization. Patient denies any nausea, vomiting, or diaphoresis. Denies any hemoptysis. He has a history of smoking, quit many years ago. He is a retired blocklayer. There is no history of DVT or PE in the past. PAST MEDICAL HISTORY: Again includes diastolic dysfunction; ASHD status post [place], status post stent; sick sinus syndrome status post PPM; hypertension; hypertensive cardiovascular disease; hyperlipidemia; type 2 diabetes; chronic kidney disease; history of right nephrectomy secondary to renal cell carcinoma; and anemia. SOCIAL HISTORY: Again, a history of smoking, quit years ago. Retired blocklayer. CURRENT MEDICATIONS: Include Altace, heparin, Pepcid, Toprol, NovoLog, nitroglycerin, Brilinta, Ecotrin, DiaBeta. PHYSICAL EXAMINATION: General: The patient is a well-developed, well-nourished male, awake, alert, in no acute distress. Vital Signs: He is afebrile. Blood pressure 114/70, respiratory rate is at 14, O2 saturation 95% on 2 L. HEENT: Normocephalic, atraumatic. Neck: Supple. Heart: Regular. S1, S2. Chest: Clear. Abdomen: Soft. Bowel sounds positive. Extremities: Trace bilateral extremity edema. LABORATORY DATA: WBC is 8.6, hemoglobin 14.1, hematocrit 42, platelet count 128,000. INR is 1.09. Chemistries: BUN 24, creatinine 1.4. Troponin is 26.2. Chest x-ray: Poor inspiratory effort. Lower retrocardiac opacity. Mild pulmonary vascular congestion. IMPRESSION: 1. Acute [id number] myocardial infarction. 2. Diastolic dysfunction. 3. Sick sinus syndrome status post pacemaker. 4. Hypertension. 5. Left retrocardiac opacity. 6. Hypercholesterolemia. 7. . 8. Chronic kidney disease. 9. History of renal cell carcinoma status post right nephrectomy. PLAN: Beta-blockers, nasal O2, cardiac catheterization as per Cardiology. Also, obtain followup chest x-ray and echocardiogram. JAKE VILLAGRAN M.D. LANRE/[id number]
[2017-05-29] MEDS ORDERED: NAPH,MB-DB/K PH,MBDB POWDER PACKET PO ONE (13:55)
[2017-05-29] MEDS ORDERED: MAGNESIUM SULF 50% (8.12 MEQ/2 ML-1 GM VIAL) IVPB ONE (13:55)
[2017-05-29] MEDS ORDERED: INSULIN DETEMIR 100 UNITS/ML MDV SQ ONE ×2 (14:04→16:39)
--- NOTE | 2017-05-29 14:18 | PN ---
Teaching Attending Note Name of Resident: Luz Elena Fry ATTENDING PHYSICIAN STATEMENT I saw and evaluated the patient. I reviewed the resident's note and discussed the case with the resident. I agree with the resident's findings and plan as documented. SUBJECTIVE: no CP , at time of evaluation at 9 am. had mild CP earlier in am nO SOB OBJECTIVE: NAD , AAOX3 CV : RRR, no JVD Lungs CTAB ext : no edema Abd : Obese , soft , NT, ND < NL BS ASSESSMENT AND PLAN: mild acute distress due to pain. shallow breathing. HEENT: dry MM, JVD . CV: RRR Lungs : R base crackles Ext: no edema . no erythema, no axillary sweating . ASSESSMENT AND PLAN: 81 y/o gentleman with h/o HTN, CAD s/p stenting, PPM, and DM who presented with CP and was found to have NSTEMI 1- NSTEMI: EKG reviewed . Trp 26 . no sx and signs of heart failure . CP resolved on Nitro gtt - Cont Heparin gtt and Nitro gtt. - cont antiplatelets . - follow Echo - cont BB . BP and HR are within goal - for cath tomorrow - started on ramipril, if Echo shows NL EF , will hold ramipril to avoid renal compromise with cath . - repeat EKG - cont statin 2- DM : Sugar of 500 on admission. - cont SSI - give 20 of levemir now. NPO tomorrow for cath. ( large amount of mixed insulin at home ) - cont glyburide , change to once daily and hold if NPO 3- Dispo : for transfer to [facility] for cath tomorrow
[2017-05-29] MEDS ORDERED: NITROGLYCERIN 25MG/D5W 250ML 250 ML IVPB SCH (14:30)
[2017-05-29] MEDS: DEXTROSE IVPB SCH (15:20)
[2017-05-29] MEDS: NITROGLYCERIN IVPB SCH (15:20)
[2017-05-29] MEDS: NITROGLYCERIN 25MG/D5W 250ML 250 ML IVPB SCH (15:40)
[2017-05-29 16:25] LABS: TROPONIN I 16.5 ng/ml (0.00-0.05)
[2017-05-29] MEDS ORDERED: FUROSEMIDE 40 MG/4 ML INJECTABLE VIAL IVPUSH ONE (16:57)
[2017-05-29] MEDS ORDERED: NITROGLYCERIN IVPB SCH (17:00)
[2017-05-29] MEDS ORDERED: DEXTROSE IVPB SCH (17:00)
--- NOTE | 2017-05-29 20:19 | PN ---
Physical Exam: SUBJECTIVE: Patient seen and examined Patient seen in the am, said he had a brief 1/10 chest painthat went away in the morning. In the afternoon, patient complained of SOB, worse on lying down OBJECTIVE: Vital Signs Period Temp Pulse Resp BP Sys/Mon Pulse Ox Last 24 Hr 97.3 F-98.5 F 70-74 14-20 100-148/59-79 94-94 GENERAL: The patient is awake, alert, and fully oriented, in mild respiratory distress, in cardiac position with intranasal cannular sating at 98 on 3l. HEAD: Normal with no signs of trauma. EYES: PERRL, extraocular movements intact, sclera anicteric, conjunctiva clear. No ptosis. ENT:R ear hearing aid, nares patent, oropharynx clear without exudates, moist mucous membranes. LUNGS: R Basal crackles, accessory muscle use. HEART: Displaced apex, Regular rate and rhythm, S1, S2 soft murmur, ABDOMEN: Soft, nontender, full, normoactive bowel sounds, no guarding, no rebound, no hepatosplenomegaly, no masses. EXTREMITIES: 2+ pulses, warm, well-perfused, no edema. NEUROLOGICAL: Cranial nerves II through XII grossly intact. Normal speech, gait not observed. PSYCH: Normal mood, normal affect. Laboratory Results - last 24 hr 05/28/17 05/28/17 05/28/17 18:45 18:45 18:45 WBC RBC Hgb Hct MCV MCH MCHC RDW Plt Count MPV Neutrophils % Lymphocytes % Monocytes % Eosinophils % Basophils % INR PTT (Actin FS) Sodium Potassium Chloride Carbon Dioxide Anion Gap BUN Creatinine Creat Clearance w eGFR POC Glucometer Random Glucose Hemoglobin A1c % 9.4 H D Calcium Phosphorus Magnesium Total Bilirubin AST ALT Alkaline Phosphatase Creatine Kinase Creatine Kinase Index CK-MB (CK-2) Troponin I B-Natriuretic Peptide 1943.90 H Total Protein Albumin Triglycerides Cholesterol Total LDL Cholesterol HDL Cholesterol TSH 3.23 05/28/17 05/28/17 05/28/17 18:45 18:45 22:44 WBC RBC Hgb Hct MCV MCH MCHC RDW Plt Count MPV Neutrophils % Lymphocytes % Monocytes % Eosinophils % Basophils % INR PTT (Actin FS) 50.0 H D Sodium Potassium Chloride Carbon Dioxide Anion Gap BUN Creatinine Creat Clearance w eGFR POC Glucometer 202 Random Glucose Hemoglobin A1c % Calcium Phosphorus Magnesium Total Bilirubin AST ALT Alkaline Phosphatase Creatine Kinase 499 H Creatine Kinase Index 4.3 CK-MB (CK-2) 21.470 H Troponin I 14.32 H* B-Natriuretic Peptide Total Protein Albumin Triglycerides 914 H Cholesterol 186 Total LDL Cholesterol 84 HDL Cholesterol 29 TSH 05/29/17 05/29/17 05/29/17 01:00 06:00 07:00 WBC 8.6 RBC 4.69 Hgb 14.1 Hct 42.0 MCV 89.6 MCH 30.1 MCHC 33.6 RDW 14.5 Plt Count 128 L MPV 8.8 Neutrophils % 69.3 Lymphocytes % 14.4 D Monocytes % 13.8 H Eosinophils % 1.8 Basophils % 0.7 D INR PTT (Actin FS) Sodium Potassium Chloride Carbon Dioxide Anion Gap BUN Creatinine Creat Clearance w eGFR POC Glucometer 229 Random Glucose Hemoglobin A1c % Calcium Phosphorus Magnesium Total Bilirubin AST ALT Alkaline Phosphatase Creatine Kinase 641 H Creatine Kinase Index 3.6 CK-MB (CK-2) 23.113 H Troponin I 24.13 H* D B-Natriuretic Peptide Total Protein Albumin Triglycerides Cholesterol Total LDL Cholesterol HDL Cholesterol TSH 05/29/17 05/29/17 05/29/17 07:00 07:00 07:00 WBC RBC Hgb Hct MCV MCH MCHC RDW Plt Count MPV Neutrophils % Lymphocytes % Monocytes % Eosinophils % Basophils % INR 1.09 PTT (Actin FS) 34.6 H D Sodium 137 Potassium 4.3 Chloride 100 Carbon Dioxide 28 Anion Gap 9 BUN 24 H Creatinine 1.4 H Creat Clearance w eGFR 48.89 POC Glucometer Random Glucose 224 H Hemoglobin A1c % Calcium 8.6 Phosphorus 2.2 L Magnesium 1.7 L Total Bilirubin 0.8 AST 117 H D ALT 43 D Alkaline Phosphatase 88 Creatine Kinase Creatine Kinase Index CK-MB (CK-2) Troponin I 25.80 H* B-Natriuretic Peptide Total Protein 6.4 Albumin 3.1 L D Triglycerides Cholesterol Total LDL Cholesterol HDL Cholesterol [facility] 05/29/17 05/29/17 05/29/17 07:00 12:30 14:30 WBC RBC Hgb Hct MCV MCH MCHC RDW Plt Count MPV Neutrophils % Lymphocytes % Monocytes % Eosinophils % Basophils % INR PTT (Actin FS) Sodium Potassium Chloride Carbon Dioxide Anion Gap BUN Creatinine Creat Clearance w eGFR POC Glucometer 298 Random Glucose Hemoglobin A1c % Calcium Phosphorus Magnesium Total Bilirubin AST ALT Alkaline Phosphatase Creatine Kinase 576 H 428 H Creatine Kinase Index 3.0 2.2 CK-MB (CK-2) 17.464 H 9.791 H Troponin I 26.20 H* 16.50 H* D B-Natriuretic Peptide Total Protein Albumin Triglycerides Cholesterol Total LDL Cholesterol HDL Cholesterol TSH 05/29/17 05/29/17 16:45 17:30 WBC RBC Hgb Hct MCV MCH MCHC RDW Plt Count MPV Neutrophils % Lymphocytes % Monocytes % Eosinophils % Basophils % INR PTT (Actin FS) 49.9 H D Sodium Potassium Chloride Carbon Dioxide Anion Gap BUN Creatinine Creat Clearance w eGFR POC Glucometer 269 Random Glucose Hemoglobin A1c % Calcium Phosphorus Magnesium Total Bilirubin AST ALT Alkaline Phosphatase Creatine Kinase Creatine Kinase Index CK-MB (CK-2) Troponin I B-Natriuretic Peptide Total Protein Albumin Triglycerides Cholesterol Total LDL Cholesterol HDL Cholesterol TSH Active Medications Generic Name Dose Route Start Last Admin Trade Name Freq PRN Reason Stop Dose Admin Aspirin 81 mg 05/29/17 10:00 05/29/17 09:57 Ecotrin - PO 81 mg DAILY ROOP[place] Administration Atorvastatin Calcium 40 mg 05/29/17 22:00 Lipitor - PO HS ROOPA Glyburide 5 mg 05/30/17 07:00 Diabeta - PO DAILY@0700 [place] Heparin Sodium (Porcine) 1,000 unit 05/28/17 18:09 Heparin - IVPUSH PRN PRN Heparin Heparin Sodium (Porcine) 5,000 unit 05/28/17 18:09 05/29/17 10:59 Heparin - IVPUSH 5,000 unit PRN PRN Administration Heparin Heparin Sodium (Porcine) 25, 500 mls @ 20 mls/hr 05/28/17 18:15 05/29/17 18:35 000 unit/ Sodium Chloride IV Not Given TITR ROOP[place] Protocol 1,000 UNIT/HR Famotidine/Sodium Chloride 50 mls @ 100 mls/hr 05/28/17 22:00 05/29/17 09:57 Pepcid 20 Mg Premixed Ivpb - IVPB 100 mls/hr BID [place]OP[place] Administration Nitroglycerin/Dextrose 250 mls @ 6 mls/hr 05/29/17 17:45 05/29/17 15:40 Nitroglycerin 25mg/D5w 250ml IVPB 8 mls/hr TITR [place]OP[place] Administration 10 MCG/MIN Insulin Aspart 1 vial 05/28/17 22:00 09/12/17 17:28 Novolog Vial Sliding Scale - SQ 6 units ACHS [place] Administration Protocol Metoprolol Succinate 50 mg 05/29/17 10:00 05/29/17 09:57 Toprol Xl - PO 50 mg DAILY [place] Administration Ramipril 5 mg 05/29/17 10:45 05/29/17 12:32 Altace - PO 5 mg DAILY [place] Administration Ticagrelor 90 mg 05/29/17 22:00 Brilinta - PO BID [place] ASSESSMENT/PLAN: 81 y/o gentleman with h/o HTN, CAD s/p stenting, PPM, and DM who presented with CP and was found to have NSTEMI #NSTEMI: EKG reviewed- no ST elevation . Troponins now trending down from 26.20 to 16.50 . Cont Heparin gtt and Nitro gtt. cont antiplatelets . Awaiting Echo cont BB resume ramipril (if Echo shows NL EF , will hold ramipril to avoid renal compromise with cath) for cath tomorrow cont statin repeat EKG #Shortness of breath No pedal edema, no JVD unilateral crackles CXR- ordered awaiting reading #DM : Sugar of 500 on admission. - cont SSI - give 20 of levemir now. -NPO tomorrow for cath. ( large amount of mixed insulin at home ) - cont glyburide , change to once daily and hold if NPO 3- Dispo : for transfer to [facility] for cath tomorrow Visit type - Emergency Visit Emergency Visit: Yes ED Registration Date: 05/28/17 Care time: The patient presented to the Emergency Department on the above date and was hospitalized for further evaluation of their emergent condition. - New Patient This patient is new to me today: Yes Date on this admission: 05/29/17 - Critical Care Critical Care patient: No - Discharge Referral Referred to [facility] Med P.C.: No
[2017-05-29] MEDS ORDERED: ATORVASTATIN CA 40 MG TABLET (FP) PO SCH ×2 (22:00→22:45)
[2017-05-29 22:06] LABS: TROPONIN I 18.9 ng/ml (0.00-0.05)
[2017-05-29] MEDS: TICAGRELOR 90 MG TABLET PO SCH (22:48)
[2017-05-30] MEDS: NITROGLYCERIN 25MG/D5W 250ML 250 ML IVPB SCH (00:49)
[2017-05-30 04:34] LABS: TROPONIN I 18.72 ng/ml (0.00-0.05)
[2017-05-30] MEDS: INSULIN SLIDING SCALE (NOVOLOG) 1 VIAL SQ SCH (06:55)
[2017-05-30] MEDS ORDERED: glyBURIDE 5 MG TABLET (UD) PO SCH (07:00)
[2017-05-30 07:33] LABS: BASOPHIL 0.8 % (0-2.0); EOSINOPHIL 1.4 % (0-4.5); MCHC 34.1 g/dl (32.0-35.9); MEAN CELL VOLUME 88.1 fl (80-96); MEAN PLT VOLUME 8.6 fl (7.5-11.1); NEUTROPHILS 68.9 % (42.8-82.8); PLATELET COUNT 122 K/MM3 (134-434); RDW 14.1 % (11.9-15.9); WHITE BLOOD COUNT 6.5 K/mm3 (4.0-10.0)
[2017-05-30 07:53] LABS: ANION GAP 8 (8-16); CALCIUM 8.5 mg/dL (8.5-10.1); CO2 27 mmol/L (21-32); CREATININE 1.3 mg/dL (0.7-1.3); GLUCOSE,RANDOM 259 mg/dL (74-106)
[2017-05-30 08:54] VITALS: BP 110/66; PULSE 74; TEMP 98.2
[2017-05-30] MEDS: FAMOTIDINE 20 MG/50 ML IVPB 50 ML IVPB SCH (09:29)
[2017-05-30] MEDS: RAMIPRIL 5 MG CAPSULE (FP) PO SCH (09:29)
[2017-05-30] MEDS: TICAGRELOR 90 MG TABLET PO SCH (09:29)
[2017-05-30] MEDS: METOPROLOL SUCCINATE 50 MG TAB.SR.24H (FP) PO SCH (09:29)
[2017-05-30] MEDS: HEPARIN - 25,000 UNIT in SODIUM CHLORIDE 495 ML IV SCH (09:30)
[2017-05-30] MEDS: HEPARIN NA (PORCINE) 5,000 UNITS/ML 1ML VIAL IVPUSH PRN (09:30)
[2017-05-30] MEDS: ASPIRIN COATED 81 MG TABLET.EC PO SCH (09:31)
--- NOTE | 2017-05-30 10:44 | EKG ---
Test Reason : Blood Pressure : / mmHG Vent. Rate : 072 BPM Atrial Rate : 072 BPM P-R Int : 142 ms QRS Dur : 198 ms QT Int : 456 ms P-R-T Axes : 072 -89 070 degrees QTc Int : 499 ms Atrial-sensed ventricular-paced rhythm ABNORMAL ECG WHEN COMPARED WITH ECG OF 29-MAY-2017 01:38, VENT. RATE HAS INCREASED BY 3 BPM Confirmed by ESCOBAR DE, MCKENZIE ([id number]) on 05/30/2017 10:43:49 AM Referred By: Zara ABDI Confirmed By:MCKENZIE CODY MD
--- NOTE | 2017-05-30 13:55 | DS ---
Physical Exam: SUBJECTIVE: Patient seen and examined No longer feeling SOB, is able to lie in bed. No chest pain this am. OBJECTIVE: Vital Signs Period Temp Pulse Resp BP Sys/Mon Pulse Ox Last 24 Hr 98.1 F-99.2 F 65-76 16-18 90-148/46-76 94-94 PHYSICAL EXAM GENERAL: The patient is awake, alert, and fully oriented, in no respiratory distress, on cpap prn HEAD: Normal with no signs of trauma. EYES: PERRL, extraocular movements intact, sclera anicteric, conjunctiva clear. No ptosis. ENT:R ear hearing aid, nares patent, oropharynx clear without exudates, moist mucous membranes. LUNGS: R Basal crackles, accessory muscle use. HEART: Displaced apex, Regular rate and rhythm, S1, S2 , ABDOMEN: Soft, nontender, full, normoactive bowel sounds, no guarding, no rebound, no hepatosplenomegaly, no masses. EXTREMITIES: 2+ pulses, warm, well-perfused, no edema. NEUROLOGICAL:No facial droop, Muscle strength 5/5 globally, reflexes 2+ globally , normal tone. R ear hearing aid. Normal speech, gait not observed. PSYCH: Normal mood, normal affect. LABS Laboratory Results - last 24 hr 05/29/17 05/29/17 05/29/17 14:30 16:45 17:30 WBC RBC Hgb Hct MCV MCH MCHC RDW Plt Count MPV Neutrophils % Lymphocytes % Monocytes % Eosinophils % Basophils % PTT (Actin FS) 49.9 H D Sodium Potassium Chloride Carbon Dioxide Anion Gap BUN Creatinine POC Glucometer 269 Random Glucose Calcium Creatine Kinase 428 H Creatine Kinase Index 2.2 CK-MB (CK-2) 9.791 H Troponin I 16.50 H* D 05/29/17 05/29/17 05/30/17 21:00 22:44 03:17 WBC RBC Hgb Hct MCV MCH MCHC RDW Plt Count MPV Neutrophils % Lymphocytes % Monocytes % Eosinophils % Basophils % PTT (Actin FS) Sodium Potassium Chloride Carbon Dioxide Anion Gap BUN Creatinine POC Glucometer 308 Random Glucose Calcium Creatine Kinase 366 H 333 H Creatine Kinase Index 1.6 1.8 CK-MB (CK-2) 6.185 H 6.004 H Troponin I 18.90 H* 18.72 H* 05/30/17 05/30/17 05/30/17 05:35 05:35 05:35 WBC 6.5 RBC 4.56 Hgb 13.7 Hct 40.2 MCV 88.1 MCH 30.0 MCHC 34.1 RDW 14.1 Plt Count 122 L MPV 8.6 Neutrophils % 68.9 Lymphocytes % 14.6 Monocytes % 14.3 H Eosinophils % 1.4 Basophils % 0.8 PTT (Actin FS) 35.3 H Sodium 138 Potassium 3.8 Chloride 103 Carbon Dioxide 27 Anion Gap 8 BUN 21 H Creatinine 1.3 POC Glucometer Random Glucose 259 H Calcium 8.5 Creatine Kinase Creatine Kinase Index CK-MB (CK-2) Troponin I 05/30/17 05:50 WBC RBC Hgb Hct MCV MCH MCHC RDW Plt Count MPV Neutrophils % Lymphocytes % Monocytes % Eosinophils % Basophils % PTT (Actin FS) Sodium Potassium Chloride Carbon Dioxide Anion Gap BUN Creatinine POC Glucometer 247 Random Glucose Calcium Creatine Kinase Creatine Kinase Index CK-MB (CK-2) Troponin I HOSPITAL COURSE: 81 y/o gentleman with h/o HTN, CAD s/p stenting, PPM, and DM who presented with CP and was found to have NSTEMI. His troponins at presentation were 0.65 and peaked at 26.20 then started trend down, last value was 18.72. His CK-MB peaked at 23.113 and trended down to 6.004. He presented with RPG of 523 and hyponatremia of 130 that he was managed for. His initial CXR (05/28/17) showed what appeared to be pulmonary vascular congestion, with possible retrocardiac infiltrates. On 05/29/17 the CXR showed Cardiomegaly, no evidence of pulm consolidations or CHF. While he was here, he was anticoagulated using heparin and was on nitroglycerin drip. He was also on SS insulin and 20U of levemir. He was continued on his home medications of Atorvastatin 40mg PO daily, ASA 81 mg daily and metoprolol XR 50mg dly. He was put on ramipril 5mg PO dly and ticagrelor 90mg bid. He also received ivpb pepcid 20mg. He had one episode of shortness of breath on 05/29/17 but no features of CHF, that resolved after a bolus of lasix 20mg iv stat. His other chronic problems include obstructive sleep apnea, obesity, hyperlipidemia, renal cancer with s/p R nephrectomy, colon cancer s/p colon surgery. On 05/30/17 he was transfered to [facility] for cardiac catheterization in a stable condition. Date of Admission:05/28/17 Date of Discharge: 05/30/17 Minutes to complete discharge: 45 Discharge Summary Reason For Visit: CHEST PAIN Current Active Problems Chronic kidney disease (CKD) (Acute) Coronary artery disease (Acute) Diastolic dysfunction without heart failure (Acute) Elevated troponin I level (Acute) Hyperlipidemia LDL goal <70 (Acute) Hypertensive cardiovascular disease (Acute) NSTEMI (non-ST elevated myocardial infarction) (Acute) Pacemaker (Acute) S/P coronary artery stent placement (Acute) SSS (sick sinus syndrome) (Acute) Subendocardial ischemia (Acute) Type 2 diabetes mellitus (Acute) Unstable angina pectoris (Acute) Condition: Stable - Instructions Referrals: Deshaun Kapadia MD [Primary Care Provider] - Disposition: TRANSFER ACUTE CARE/OTHER HOSP - Home Medications Comprehensive Discharge Medication List: Ambulatory Orders Allopurinol [Zyloprim -] 100 mg PO DAILY 02/25/16 Aspirin [Ecotrin] 81 mg PO DAILY 02/25/16 Atorvastatin Ca [Lipitor] 40 mg PO HS 02/25/16 Cholecalciferol (Vitamin D3) [Vitamin D3] 1,000 unit PO DAILY 02/25/16 Cyanocobalamin [Vitamin B12 -] 1,000 mcg PO DAILY 02/25/16 Glyburide 5 mg PO DAILY 02/25/16 Metoprolol Succinate [Toprol Xl -] 50 mg PO DAILY 02/25/16 Ramipril 10 mg PO DAILY 02/25/16 Insulin Lispro Protamin/Lispro [Humalog Mix 75-25 Vial] 20 unit SQ HS 05/28/17 Insulin Lispro Protamin/Lispro [Humalog Mix 75-25 Vial] 30 unit SQ DAILY [place]-3 Acid Ethyl Esters 1 gm PO DAILY 05/28/17 This patient is new to me today: No Emergency Visit: Yes ED Registration Date: 05/28/17 Care time: The patient presented to the Emergency Department on the above date and was hospitalized for further evaluation of their emergent condition. Critical Care patient: No - Discharge Referral Referred to [facility] Med P.C.: No
--- NOTE | 2017-05-30 16:36 | PN ---
Teaching Attending Note Name of Resident: Luz Elena Fry ATTENDING PHYSICIAN STATEMENT Patient was transferred to [facility] by the activity therapy specialist for coronary angiography
--- NOTE | 2017-05-30 18:35 | PN ---
Progress Note (short form) - Note Progress Note: Patient underwent R&LHC demonstrating normal filling pressures, 99% mid LAD in- segment restenosis proximal to previous stent with GITA I flow, nonobstructive LCx and hyperdominant RCA, mild LV dysfunction with anteroapical HK, he underwent implant [employer] [place] 3.0 x 22 mm MARIELLA post-dilated with non- compliant 3.25 x 20 mm balloon at 14 CLAIRE with improvement of flow, Mynx deployed right [employer] access site, no complications, stable for routine post PCI care and d/c in AM. Problem List - Problems (1) Coronary artery disease Code(s): I25.10 - ATHSCL HEART DISEASE OF [place] CORONARY ARTERY W/O ANG PCTRS Qualifiers: Coronary Disease-Associated Artery/Lesion type: [place] artery [place] vs. transplanted heart: [place] heart Associated angina: with unstable angina Qualified Code(s): I25.110 - Atherosclerotic heart disease of [place] coronary artery with unstable angina pectoris (2) S/P coronary artery stent placement Code(s): Z95.5 - PRESENCE OF CORONARY ANGIOPLASTY IMPLANT AND GRAFT (3) Unstable angina pectoris Code(s): I20.0 - UNSTABLE ANGINA (4) Diastolic dysfunction without heart failure Code(s): I51.9 - HEART DISEASE, UNSPECIFIED (5) Hyperlipidemia LDL goal <70 Code(s): E78.5 - HYPERLIPIDEMIA, UNSPECIFIED (6) Type 2 diabetes mellitus Code(s): E11.9 - TYPE 2 DIABETES MELLITUS WITHOUT COMPLICATIONS Qualifiers: Chronic kidney disease stage: stage 3 (moderate) (7) Pacemaker Code(s): Z95.0 - PRESENCE OF CARDIAC PACEMAKER (8) SSS (sick sinus syndrome) Code(s): I49.5 - SICK SINUS SYNDROME (9) Chronic kidney disease (CKD) Code(s): N18.9 - CHRONIC KIDNEY DISEASE, UNSPECIFIED Qualifiers: Chronic kidney disease stage: stage 3 (moderate) Qualified Code(s): N18.3 - Chronic kidney disease, stage 3 (moderate) (10) Hypertensive cardiovascular disease Code(s): I11.9 - HYPERTENSIVE HEART DISEASE WITHOUT HEART FAILURE Qualifiers: Heart failure presence: without heart failure Qualified Code(s): I11.9 - Hypertensive heart disease without heart failure (11) NSTEMI (non-ST elevated myocardial infarction) Code(s): I21.4 - NON-ST ELEVATION (NSTEMI) MYOCARDIAL INFARCTION
--- NOTE | 2017-05-31 13:20 | EKG ---
Test Reason : Blood Pressure : / mmHG Vent. Rate : 072 BPM Atrial Rate : 072 BPM P-R Int : 146 ms QRS Dur : 190 ms QT Int : 454 ms P-R-T Axes : 085 268 061 degrees QTc Int : 497 ms Atrial-sensed ventricular-paced rhythm ABNORMAL ECG WHEN COMPARED WITH ECG OF 29-MAY-2017 14:43, NO SIGNIFICANT CHANGE WAS FOUND Confirmed by PATRICK CHAUDHARI MD ([id number]) on 05/31/2017 1:19:51 PM Referred By: Confirmed By:PATRICK CHAUDHARI MD
== END 2017-05-30 09:38 | disposition short-term general hospital (02) | DRG 281 ==
LOC: FER 12:03 → J4W 17:50
PROVIDERS: ADMIT Internal Medicine; ATTEND Internal Medicine
DX: I21.4 Non-ST elevation (NSTEMI) myocardial infarction (principal); E87.1 Hypo-osmolality and hyponatremia; I13.0 Hypertensive heart and chronic kidney disease with heart failure and stage 1 through stage 4 chronic kidney disease, or unspecified chronic kidney disease; I50.32 Chronic diastolic (congestive) heart failure; N17.9 Acute kidney failure, unspecified; E78.5 Hyperlipidemia, unspecified; I25.10 Atherosclerotic heart disease of native coronary artery without angina pectoris; I25.2 Old myocardial infarction; Z98.61 Coronary angioplasty status; Z95.0 Presence of cardiac pacemaker; Z85.038 Personal history of other malignant neoplasm of large intestine; Z79.4 Long term (current) use of insulin; D64.9 Anemia, unspecified; E66.9 Obesity, unspecified; Z85.528 Personal history of other malignant neoplasm of kidney; E83.42 Hypomagnesemia; G47.33 Obstructive sleep apnea (adult) (pediatric); E11.22 Type 2 diabetes mellitus with diabetic chronic kidney disease; N18.3 Chronic kidney disease, stage 3 (moderate); E78.2 Mixed hyperlipidemia; Z68.33 Body mass index [BMI] 33.0-33.9, adult
CPT/HCPCS: 36415; 71010-TC; 80048; 80053; 80061; 82009; 82553; 83036; 83721; 83735; 83880; 84100; 84443; 84484; 85025; 85610; 85730; 93005; 93010; 93306-TC; 99285-25; J1644

== ENCOUNTER 2019-05-12 12:50 | Emergency (ER) | payer OTHER ==
[2019-05-12] MEDS ORDERED: ACETAMINOPHEN 325 MG TABLET (FP) PO ONE (13:51)
[2019-05-12 14:17] VITALS: BP 131/83; PULSE 88; TEMP 98; BMI 32.0
[2019-05-12] MEDS ORDERED: IBUPROFEN 400 MG TABLET (FP) PO ONE ×2 (14:19)
--- NOTE | 2019-05-12 14:25 | PDOC ---
History of Present Illness - General Chief Complaint: Injury Stated Complaint: WRIST PAIN History Source: Patient Exam Limitations: No Limitations - History of Present Illness Initial Comments: 05/12/19 14:20 83 yo male h/o HTN HLD pacemaker, here s/p trip and fall 3 days ago. pt state he was in [place] watching some guys do work, and he lost his balance. fell back into a tree, then fell forward with outstretched left hand and knee. happened 3 days ago. no pain and swelling left wrist. pt is right hand dominant. no elbow or shoulder pain. has had prior knee surgery, no pain now . ambulating without diffiuclty. no head trauma. no hip pain . left wrist pain is worse with flex/ ext, no numbness or tingling. took tylenol 3 hours ago min relief. Past History - Past Medical History Allergies/Adverse Reactions: Allergies Allergy/AdvReac Type Severity Reaction Status Date / Time No Known Drug Allergies Allergy Verified 02/25/16 16:27 Home Medications: Ambulatory Orders Allopurinol [Zyloprim -] 100 mg PO DAILY 02/25/16 Aspirin [Ecotrin] 81 mg PO DAILY 02/25/16 Cholecalciferol (Vitamin D3) [Vitamin D3] 1,000 unit PO DAILY 02/25/16 Cyanocobalamin [Vitamin B12 -] 1,000 mcg PO DAILY 02/25/16 Metoprolol Succinate [Toprol Xl -] 50 mg PO DAILY 02/25/16 Ramipril 10 mg PO DAILY 02/25/16 [place]-3 Acid Ethyl Esters 1 gm PO DAILY 05/28/17 Acetaminophen [Tylenol -] 1,000 mg PO PRN PRN 05/12/19 Ezetimibe [Zetia -] 10 mg PO DAILY 05/12/19 Insulin (Novolog 70/30) [Novolog Mix 70/30 Vial] 32 ml SQ DAILY 05/12/19 Insulin NPH Hum/Reg Insulin Hm [Novolin 70-30 Flexpen] 26 unit SQ HS 05/12/19 Ticagrelor [Brilinta] 60 mg PO ASDIR 05/12/19 Anemia: No Asthma: No Cancer: Yes (COLON; KIDNEY) Cardiac Disorders: Yes (PPM, STENT, ?VT) CVA: No COPD: Yes CHF: No Dementia: No Diabetes: Yes GI Disorders: Yes (HEMORRHOIDS) Disorders: No HTN: Yes Hypercholesterolemia: Yes Liver Disease: No Seizures: No Thyroid Disease: No - Surgical History Abdominal Surgery: Yes (COLON RESECTION) Appendectomy: No Cardiac Surgery: Yes (pacemaker) Cholecystectomy: No Lung Surgery: No Neurologic Surgery: No Orthopedic Surgery: Yes (BILATERA; KNEES) - Suicide/Smoking/Psychosocial Hx Smoking History: Never smoked Have you smoked in the past 12 months: No Information on smoking cessation initiated: No Hx Alcohol Use: No Drug/Substance Use Hx: No Substance Use Type: None Hx Substance Use Treatment: No Review of Systems - Review of Systems Constitutional: No: Chills, Diaphoresis HEENTM: No: Eye Pain Respiratory: No: Cough, Orthopnea Cardiac (ROS): No: Chest Pain, Edema ABD/GI: No: Abdominal Distended : No: Burning, Dysuria Musculoskeletal: Yes: Joint Pain Integumentary: Yes: Bruising, Change in Color Neurological: No: Headache, Numbness All Other Systems: Reviewed and Negative *Physical Exam - Vital Signs Last Vital Signs Temp Pulse Resp BP Pulse Ox 98 F 88 20 131/83 97 05/12/19 13:22 05/12/19 13:22 05/12/19 13:22 05/12/19 13:22 05/12/19 13:22 - Physical Exam Comments: 05/12/19 15:16 awake alert lungs clear bilat heart rrr no mrg left upper extremity distal radius fullness, eccymosis. swelling pain with flex/ ext wrist. ttp over distal radius. no ulnar tenderness. distally n/v intact. 2 + rad/ ulnar pulses. elbow from, shoulder from. no midline spinal tenderness. head atraumatic. pelvis and bilat hips NT FROM. gait normal. ED Treatment Course - RADIOLOGY Radiology Studies Ordered: Category Date Time Status WRIST-LEFT [RAD] Stat Radiology 05/12/19 13:52 Completed Medical Decision Making - Medical Decision Making 05/12/19 15:17 s/p FOOSH. left wrist pain. plan xray r/o fx radiologist read negative. however on my evaluation small hairline irregularity distal radius. will splint and followup with orthpedis. dr velasquez. *DC/Admit/Observation/Transfer Diagnosis at time of Disposition: Wrist injury - Discharge Dispostion Disposition: HOME Condition at time of disposition: Good Decision to Admit order: No - Referrals Referrals: Steffi,Deshaun, MD [Primary Care Provider] - Artemio Velasquez MD [Staff Physician] - - Patient Instructions Printed Discharge Instructions: Wrist Fracture Additional Instructions: you have a left wrist injury. you should wear the splint on your wrist until you can be seen by orthopedics. call dr Velasquez to schedule outpatient followup. take ibuprofen 400 mg every 8 hours as needed for pain. return for any problems or concerns. elevate wrist to reduce swelling and pain. - Post Discharge Activity
== END 2019-05-12 15:34 | disposition home or self-care (01) ==
LOC: FER 12:50
DX: M25.532 Pain in left wrist (principal); W18.39XA Other fall on same level, initial encounter; Y93.89 Activity, other specified; Y92.89 Other specified places as the place of occurrence of the external cause; I10 Essential (primary) hypertension; E78.5 Hyperlipidemia, unspecified; Z95.0 Presence of cardiac pacemaker
CPT/HCPCS: 73110-TC-LT-FY; 99282-25

== ENCOUNTER 2021-08-23 14:33 | Inpatient (IN) | payer OTHER ==
[2021-08-23 16:31] VITALS: BMI 29.1
[2021-08-23 17:58] LABS: BASO % 0.1 % (0-2.0); EOS % 0.1 % (0-4.5); HEMATOCRIT 42.9 % (35.4-49); HEMOGLOBIN 14.5 GM/dL (11.7-16.9); LYMPH % 22.2 % (8-40); MCH 30.1 pg (25.7-33.7); MCHC 33.8 g/dl (32.0-35.9); MEAN PLT VOLUME 9.2 fl (7.5-11.1); MONO % 11.8 % (3.8-10.2); NEUT % 65.8 % (42.8-82.8); PLATELET COUNT 73 10^3/uL (134-434); RBC 4.83 M/mm3 (4.00-5.60); RDW 14.8 % (11.9-15.9)
[2021-08-23 18:24] LABS: CALCIUM 8.2 mg/dL (8.5-10.1)
[2021-08-23 18:25] LABS: ALBUMIN 2.9 g/dl (3.4-5.0); BLOOD UREA NITROGEN 60.1 mg/dL (7-18)
[2021-08-23 18:27] LABS: CREATININE 3.2 mg/dL (0.55-1.3)
[2021-08-23] MEDS ORDERED: LACTATED RINGERS SOLUTION 1,000 ML IV STA (18:28)
[2021-08-23 18:29] LABS: BILIRUBIN,TOTAL 0.6 mg/dL (0.2-1); TOT PROT 7.3 g/dl (6.4-8.2)
[2021-08-23 18:33] LABS: INR 1.52 (0.83-1.09); PROTHROMBIN TIME (PATIENT) 17.1 SEC (9.7-13.0)
[2021-08-23 18:33] LABS: N-TERMINAL BNP 579.1 pg/ml (5-450)
[2021-08-23 18:34] LABS: LACTIC ACID 3.1 mmol/L (0.4-2.0)
[2021-08-23 18:35] LABS: ACTIVATED PTT 33.9 SECONDS (25.2-36.5)
[2021-08-23 19:13] LABS: ERYTHROCYTE SEDIMENTATION RATE 57 mm/hr (0-20)
[2021-08-23] MEDS ORDERED: DEXAMETHASONE SOD PHOSPHATE 4 MG/1 ML VIAL IVPUSH ONE (20:55)
[2021-08-23] MEDS ORDERED: DEXAMETHASONE SOD PHOSPHATE 10 MG/1 ML VIAL ONE (21:59)
[2021-08-23 22:21] LABS: MAGNESIUM 1.8 mg/dL (1.8-2.4)
[2021-08-24] MEDS ORDERED: SODIUM CHLORIDE 500 ML IV STA ×2 (07:40→08:07)
[2021-08-24 08:15] LABS: HEMATOCRIT 41.4 % (35.4-49); MCH 30.2 pg (25.7-33.7); MCHC 33.7 g/dl (32.0-35.9); MEAN CELL VOLUME 89.7 fl (80-96); MEAN PLT VOLUME 9.3 fl (7.5-11.1); PLATELET COUNT 65 10^3/uL (134-434); RBC 4.62 M/mm3 (4.00-5.60); RDW 14.6 % (11.9-15.9); WHITE BLOOD COUNT 2.7 K/mm3 (4.0-10.0)
[2021-08-24] MEDS ORDERED: SODIUM CHLORIDE 1,000 ML IV SCH (08:15)
[2021-08-24] MEDS: SODIUM CHLORIDE 1,000 ML IV SCH (08:26)
[2021-08-24 09:00] LABS: BLOOD UREA NITROGEN 59.7 mg/dL (7-18)
[2021-08-24 09:01] LABS: ALBUMIN 2.6 g/dl (3.4-5.0); CREATININE 2.5 mg/dL (0.55-1.3)
[2021-08-24 09:03] LABS: BILIRUBIN,TOTAL 0.5 mg/dL (0.2-1); TOT PROT 6.6 g/dl (6.4-8.2)
[2021-08-24] MEDS ORDERED: DEXAMETHASONE SOD PHOSPHATE 4 MG/1 ML VIAL ONE (09:59)
[2021-08-24] MEDS ORDERED: CHOLECALCIFEROL (VIT D3) 1,000 UNIT (25 MCG) TABLET ONE (09:59)
[2021-08-24] MEDS ORDERED: APIXABAN 2.5 MG TABLET PO SCH (10:00)
[2021-08-24] MEDS: DEXAMETHASONE SOD PHOSPHATE 4 MG/1 ML VIAL IVPUSH SCH (10:07)
[2021-08-24] MEDS: CHOLECALCIFEROL (VIT D3) 1,000 UNIT (25 MCG) TABLET PO SCH (10:07)
[2021-08-24] MEDS: INSULIN SLIDING SCALE (NOVOLOG) 1 VIAL SQ SCH ×2 (11:52→17:54)
[2021-08-24] MEDS ORDERED: REMDESIVIR 200 MG in SODIUM CHLORIDE 250 ML IVPB ONE (14:00)
[2021-08-24] MEDS ORDERED: HEPARIN NA (PORCINE) 5,000 UNITS/ML 1ML VIAL ONE ×2 (14:06→21:18)
[2021-08-24] MEDS: HEPARIN NA (PORCINE) 5,000 UNITS/ML 1ML VIAL SQ SCH ×2 (14:22→21:25)
[2021-08-24] MEDS ORDERED: ALBUTEROL SO4 HFA INHALER IH ONE (16:10)
[2021-08-24] MEDS: ALBUTEROL SO4 HFA INHALER IH SCH ×2 (16:11→21:25)
[2021-08-24] MEDS: BUDESONIDE/FORMETEROL FUMARATE 160/4.5 mcg INHALER IH SCH (21:25)
[2021-08-24] MEDS ORDERED: SODIUM ZIRCONIUM CYCLOSILICATE (LOKELMA) 5 GM PACKET PO ONE (23:30)
[2021-08-24] MEDS ORDERED: INSULIN SLIDING SCALE (NOVOLOG) 1 VIAL SQ SCH (23:59)
[2021-08-25] MEDS: SODIUM CHLORIDE 1,000 ML IV SCH ×3 (00:06→12:07)
[2021-08-25] MEDS ORDERED: INSULIN (NOVOLOG) ASPART 100 UNITS/ML 10ML VIAL SQ ONE (01:31)
[2021-08-25] MEDS: HEPARIN NA (PORCINE) 5,000 UNITS/ML 1ML VIAL SQ SCH ×3 (06:11→21:40)
[2021-08-25] MEDS: INSULIN SLIDING SCALE (NOVOLOG) 1 VIAL SQ SCH ×4 (06:11→21:41)
[2021-08-25 07:11] LABS: BASO % 0.2 % (0-2.0); HEMATOCRIT 39.3 % (35.4-49); HEMOGLOBIN 13.3 GM/dL (11.7-16.9); LYMPH % 15.5 % (8-40); MCH 29.5 pg (25.7-33.7); MCHC 33.8 g/dl (32.0-35.9); MEAN CELL VOLUME 87.5 fl (80-96); MEAN PLT VOLUME 8.9 fl (7.5-11.1); MONO % 11.3 % (3.8-10.2); PLATELET COUNT 75 10^3/uL (134-434); RBC 4.49 M/mm3 (4.00-5.60); RDW 14.9 % (11.9-15.9); WHITE BLOOD COUNT 2.9 K/mm3 (4.0-10.0)
[2021-08-25 07:30] LABS: CALCIUM 7.6 mg/dL (8.5-10.1); MAGNESIUM 1.6 mg/dL (1.8-2.4)
[2021-08-25 07:33] LABS: PHOSPHOROUS 2.8 mg/dL (2.5-4.9)
[2021-08-25] MEDS ORDERED: MAGNESIUM SULF 50% (8.12 MEQ/2 ML-1 GM VIAL) IVPB ONE (08:11)
[2021-08-25] MEDS: ALBUTEROL SO4 HFA INHALER IH SCH ×4 (09:21→21:41)
[2021-08-25] MEDS: CHOLECALCIFEROL (VIT D3) 1,000 UNIT (25 MCG) TABLET PO SCH (09:22)
[2021-08-25] MEDS: DEXAMETHASONE SOD PHOSPHATE 4 MG/1 ML VIAL IVPUSH SCH (09:31)
[2021-08-25] MEDS: BUDESONIDE/FORMETEROL FUMARATE 160/4.5 mcg INHALER IH SCH ×3 (09:37→21:41)
[2021-08-25] MEDS ORDERED: PT OWN MED DRAWER 7, Y5N ONE ×5 (11:16→17:24)
[2021-08-25] MEDS: REMDESIVIR 100 MG in SODIUM CHLORIDE 250 ML IVPB SCH (14:28)
[2021-08-25] MEDS: ZINC SULFATE 220 MG CAPSULE (FP) PO SCH (14:30)
[2021-08-25] MEDS: ASCORBIC ACID 250 MG TABLET (FP) PO SCH (17:25)
[2021-08-26] MEDS: HEPARIN NA (PORCINE) 5,000 UNITS/ML 1ML VIAL SQ SCH ×3 (06:43→21:06)
[2021-08-26] MEDS: INSULIN SLIDING SCALE (NOVOLOG) 1 VIAL SQ SCH ×4 (06:46→21:06)
[2021-08-26] MEDS: SODIUM CHLORIDE 1,000 ML IV SCH ×2 (07:00→10:15)
[2021-08-26] MEDS ORDERED: INSULIN (LEVEMIR) 100 UNITS/ML UNITS SQ ONE (07:56)
[2021-08-26 08:43] LABS: BASO % 0.1 % (0-2.0); HEMATOCRIT 38.1 % (35.4-49); HEMOGLOBIN 12.9 GM/dL (11.7-16.9); LYMPH % 10.8 % (8-40); MCH 29.8 pg (25.7-33.7); MCHC 33.9 g/dl (32.0-35.9); MEAN CELL VOLUME 87.9 fl (80-96); MEAN PLT VOLUME 9.2 fl (7.5-11.1); NEUT % 81.1 % (42.8-82.8); PLATELET COUNT 85 10^3/uL (134-434); RBC 4.33 M/mm3 (4.00-5.60); RDW 14.5 % (11.9-15.9); WHITE BLOOD COUNT 3.3 K/mm3 (4.0-10.0)
[2021-08-26 09:13] LABS: CALCIUM 7.5 mg/dL (8.5-10.1)
[2021-08-26 09:14] LABS: BLOOD UREA NITROGEN 55.7 mg/dL (7-18); MAGNESIUM 1.9 mg/dL (1.8-2.4)
[2021-08-26 09:17] LABS: CREATININE 1.7 mg/dL (0.55-1.3); PHOSPHOROUS 2.9 mg/dL (2.5-4.9)
[2021-08-26] MEDS: ALBUTEROL SO4 HFA INHALER IH SCH ×4 (10:04→21:06)
[2021-08-26] MEDS: CHOLECALCIFEROL (VIT D3) 1,000 UNIT (25 MCG) TABLET PO SCH (10:13)
[2021-08-26] MEDS: DEXAMETHASONE SOD PHOSPHATE 4 MG/1 ML VIAL IVPUSH SCH (10:13)
[2021-08-26] MEDS: ZINC SULFATE 220 MG CAPSULE (FP) PO SCH (10:13)
[2021-08-26] MEDS: POLYETHYLENE GLYCOL (HEALTHYLAX) 3350 17 GM PACKET PO SCH (10:13)
[2021-08-26] MEDS: BUDESONIDE/FORMETEROL FUMARATE 160/4.5 mcg INHALER IH SCH ×2 (10:14→21:06)
[2021-08-26] MEDS: ASCORBIC ACID 250 MG TABLET (FP) PO SCH (10:14)
[2021-08-26] MEDS: REMDESIVIR 100 MG in SODIUM CHLORIDE 250 ML IVPB SCH (13:18)
[2021-08-26] MEDS: INSULIN (LEVEMIR) 100 UNITS/ML UNITS SQ SCH (21:05)
[2021-08-27] MEDS: INSULIN (LEVEMIR) 100 UNITS/ML UNITS SQ SCH ×2 (07:03→22:03)
[2021-08-27] MEDS: HEPARIN NA (PORCINE) 5,000 UNITS/ML 1ML VIAL SQ SCH ×3 (07:03→22:03)
[2021-08-27] MEDS: INSULIN SLIDING SCALE (NOVOLOG) 1 VIAL SQ SCH ×4 (07:04→22:11)
[2021-08-27] MEDS: SODIUM CHLORIDE 1,000 ML IV SCH ×3 (07:09→16:33)
[2021-08-27 08:37] LABS: BASO % 0.1 % (0-2.0); HEMATOCRIT 40.7 % (35.4-49); HEMOGLOBIN 13.6 GM/dL (11.7-16.9); LYMPH % 11.4 % (8-40); MCH 29.4 pg (25.7-33.7); MCHC 33.3 g/dl (32.0-35.9); MEAN CELL VOLUME 88.4 fl (80-96); MEAN PLT VOLUME 8.5 fl (7.5-11.1); NEUT % 77.5 % (42.8-82.8); PLATELET COUNT 90 10^3/uL (134-434); RBC 4.61 M/mm3 (4.00-5.60); RDW 14.6 % (11.9-15.9); WHITE BLOOD COUNT 3.2 K/mm3 (4.0-10.0)
[2021-08-27 08:54] LABS: CALCIUM 8.2 mg/dL (8.5-10.1)
[2021-08-27 08:55] LABS: BLOOD UREA NITROGEN 47.7 mg/dL (7-18); MAGNESIUM 1.8 mg/dL (1.8-2.4)
[2021-08-27 08:58] LABS: CREATININE 1.7 mg/dL (0.55-1.3)
[2021-08-27] MEDS ORDERED: PT OWN MED DRAWER 7, Y5N ONE (09:13)
[2021-08-27] MEDS: CHOLECALCIFEROL (VIT D3) 1,000 UNIT (25 MCG) TABLET PO SCH (10:39)
[2021-08-27] MEDS: ASCORBIC ACID 250 MG TABLET (FP) PO SCH (10:39)
[2021-08-27] MEDS: DEXAMETHASONE SOD PHOSPHATE 4 MG/1 ML VIAL IVPUSH SCH (10:39)
[2021-08-27] MEDS: POLYETHYLENE GLYCOL (HEALTHYLAX) 3350 17 GM PACKET PO SCH (10:40)
[2021-08-27] MEDS: ZINC SULFATE 220 MG CAPSULE (FP) PO SCH (10:40)
[2021-08-27] MEDS: BUDESONIDE/FORMETEROL FUMARATE 160/4.5 mcg INHALER IH SCH ×2 (10:40→22:03)
[2021-08-27] MEDS: ALBUTEROL SO4 HFA INHALER IH SCH ×4 (10:40→22:02)
[2021-08-27] MEDS: REMDESIVIR 100 MG in SODIUM CHLORIDE 250 ML IVPB SCH (13:49)
[2021-08-28] MEDS: SODIUM CHLORIDE 1,000 ML IV SCH ×2 (04:35→17:49)
[2021-08-28] MEDS: HEPARIN NA (PORCINE) 5,000 UNITS/ML 1ML VIAL SQ SCH ×3 (06:22→21:39)
[2021-08-28] MEDS: INSULIN (LEVEMIR) 100 UNITS/ML UNITS SQ SCH ×2 (06:23→21:39)
[2021-08-28] MEDS: INSULIN SLIDING SCALE (NOVOLOG) 1 VIAL SQ SCH ×5 (06:28→21:40)
[2021-08-28] MEDS ORDERED: PT OWN MED DRAWER 7, Y5N ONE (09:10)
[2021-08-28] MEDS: ZINC SULFATE 220 MG CAPSULE (FP) PO SCH (09:17)
[2021-08-28] MEDS: POLYETHYLENE GLYCOL (HEALTHYLAX) 3350 17 GM PACKET PO SCH (09:17)
[2021-08-28] MEDS: DEXAMETHASONE SOD PHOSPHATE 4 MG/1 ML VIAL IVPUSH SCH (09:17)
[2021-08-28] MEDS: CHOLECALCIFEROL (VIT D3) 1,000 UNIT (25 MCG) TABLET PO SCH (09:17)
[2021-08-28] MEDS: ASCORBIC ACID 250 MG TABLET (FP) PO SCH (09:17)
[2021-08-28] MEDS: ALBUTEROL SO4 HFA INHALER IH SCH ×5 (09:18→21:39)
[2021-08-28] MEDS: BUDESONIDE/FORMETEROL FUMARATE 160/4.5 mcg INHALER IH SCH ×2 (09:18→21:40)
[2021-08-28 10:33] LABS: BASO % 0.1 % (0-2.0); HEMATOCRIT 39.3 % (35.4-49); HEMOGLOBIN 13.3 GM/dL (11.7-16.9); LYMPH % 9.4 % (8-40); MCH 29.7 pg (25.7-33.7); MEAN CELL VOLUME 87.4 fl (80-96); MEAN PLT VOLUME 8.6 fl (7.5-11.1); MONO % 11.4 % (3.8-10.2); NEUT % 79.1 % (42.8-82.8); PLATELET COUNT 91 10^3/uL (134-434); RDW 14.5 % (11.9-15.9); WHITE BLOOD COUNT 3.2 K/mm3 (4.0-10.0)
[2021-08-28 11:03] LABS: BLOOD UREA NITROGEN 40.7 mg/dL (7-18); CALCIUM 7.8 mg/dL (8.5-10.1); MAGNESIUM 1.6 mg/dL (1.8-2.4)
[2021-08-28 11:06] LABS: CREATININE 1.6 mg/dL (0.55-1.3)
[2021-08-28] MEDS: REMDESIVIR 100 MG in SODIUM CHLORIDE 250 ML IVPB SCH (14:38)
[2021-08-29] MEDS: INSULIN SLIDING SCALE (NOVOLOG) 1 VIAL SQ SCH ×4 (06:11→22:18)
[2021-08-29] MEDS: INSULIN (LEVEMIR) 100 UNITS/ML UNITS SQ SCH ×2 (06:12→22:18)
[2021-08-29 08:04] LABS: HEMATOCRIT 43.5 % (35.4-49); HEMOGLOBIN 14.8 GM/dL (11.7-16.9); LYMPH % 5.7 % (8-40); MCH 29.9 pg (25.7-33.7); MEAN CELL VOLUME 87.9 fl (80-96); MEAN PLT VOLUME 8.9 fl (7.5-11.1); MONO % 8.9 % (3.8-10.2); NEUT % 85.4 % (42.8-82.8); PLATELET COUNT 135 10^3/uL (134-434); RBC 4.95 M/mm3 (4.00-5.60); RDW 14.7 % (11.9-15.9); WHITE BLOOD COUNT 6.2 K/mm3 (4.0-10.0)
[2021-08-29] MEDS: ALBUTEROL SO4 HFA INHALER IH SCH ×4 (08:10→21:03)
[2021-08-29 08:29] LABS: CALCIUM 8.5 mg/dL (8.5-10.1)
[2021-08-29 08:30] LABS: BLOOD UREA NITROGEN 43.4 mg/dL (7-18); MAGNESIUM 1.6 mg/dL (1.8-2.4)
[2021-08-29 08:33] LABS: PHOSPHOROUS 3.6 mg/dL (2.5-4.9)
[2021-08-29 08:34] LABS: CREATININE 1.7 mg/dL (0.55-1.3)
[2021-08-29] MEDS ORDERED: MAGNESIUM 2GM/50ML STERILE WATER IVPB IVPB ONE (09:46)
[2021-08-29] MEDS ORDERED: PT OWN MED DRAWER 7, Y5N ONE (09:50)
[2021-08-29] MEDS: POLYETHYLENE GLYCOL (HEALTHYLAX) 3350 17 GM PACKET PO SCH (10:09)
[2021-08-29] MEDS: ASCORBIC ACID 250 MG TABLET (FP) PO SCH (10:09)
[2021-08-29] MEDS: ZINC SULFATE 220 MG CAPSULE (FP) PO SCH (10:09)
[2021-08-29] MEDS: HEPARIN NA (PORCINE) 5,000 UNITS/ML 1ML VIAL SQ SCH ×2 (10:09→22:13)
[2021-08-29] MEDS: DEXAMETHASONE SOD PHOSPHATE 4 MG/1 ML VIAL IVPUSH SCH (10:09)
[2021-08-29] MEDS: BUDESONIDE/FORMETEROL FUMARATE 160/4.5 mcg INHALER IH SCH ×2 (10:09→22:19)
[2021-08-29] MEDS: CHOLECALCIFEROL (VIT D3) 1,000 UNIT (25 MCG) TABLET PO SCH (10:09)
[2021-08-30] MEDS: INSULIN (LEVEMIR) 100 UNITS/ML UNITS SQ SCH ×2 (06:25→22:06)
[2021-08-30] MEDS: INSULIN SLIDING SCALE (NOVOLOG) 1 VIAL SQ SCH ×4 (06:25→22:06)
[2021-08-30] MEDS: ALBUTEROL SO4 HFA INHALER IH SCH ×4 (10:06→22:07)
[2021-08-30] MEDS: BUDESONIDE/FORMETEROL FUMARATE 160/4.5 mcg INHALER IH SCH ×2 (10:07→22:07)
[2021-08-30] MEDS: POLYETHYLENE GLYCOL (HEALTHYLAX) 3350 17 GM PACKET PO SCH (10:07)
[2021-08-30] MEDS: ZINC SULFATE 220 MG CAPSULE (FP) PO SCH (10:07)
[2021-08-30] MEDS: HEPARIN NA (PORCINE) 5,000 UNITS/ML 1ML VIAL SQ SCH ×2 (10:07→22:07)
[2021-08-30] MEDS: CHOLECALCIFEROL (VIT D3) 1,000 UNIT (25 MCG) TABLET PO SCH (10:07)
[2021-08-30] MEDS: DEXAMETHASONE SOD PHOSPHATE 4 MG/1 ML VIAL IVPUSH SCH (10:07)
[2021-08-30] MEDS: ASCORBIC ACID 250 MG TABLET (FP) PO SCH (10:08)
[2021-08-30 11:15] LABS: HEMATOCRIT 44.3 % (35.4-49); HEMOGLOBIN 14.8 GM/dL (11.7-16.9); MCH 29.3 pg (25.7-33.7); MCHC 33.4 g/dl (32.0-35.9); MEAN PLT VOLUME 8.8 fl (7.5-11.1); MONO % 7.9 % (3.8-10.2); NEUT % 86.1 % (42.8-82.8); PLATELET COUNT 129 10^3/uL (134-434); RBC 5.04 M/mm3 (4.00-5.60); RDW 14.9 % (11.9-15.9); WHITE BLOOD COUNT 7.3 K/mm3 (4.0-10.0)
[2021-08-30 11:41] LABS: CHLORIDE 102 mmol/L (98-107); SODIUM 138 mmol/L (136-145)
[2021-08-30 11:43] LABS: ALBUMIN 2.5 g/dl (3.4-5.0); ANION GAP 7 MMOL/L (8-16); CALCIUM 8.8 mg/dL (8.5-10.1); CO2 29 mmol/L (21-32); GLUCOSE,RANDOM 335 mg/dL (74-106); MAGNESIUM 2.1 mg/dL (1.8-2.4)
[2021-08-30 11:46] LABS: CREATININE 1.5 mg/dL (0.55-1.3); SGOT/AST 24 U/L (15-37)
[2021-08-30 11:47] LABS: SGPT/ALT 68 U/L (13-61); TOT PROT 6.2 g/dl (6.4-8.2)
[2021-08-30 11:48] LABS: ALK PHOS 58 U/L (45-117)
[2021-08-30 11:50] LABS: LDH 276 U/L (87-246)
[2021-08-30] MEDS ORDERED: PT OWN MED DRAWER 7, Y5N ONE ×2 (13:54→16:10)
[2021-08-30] MEDS: SODIUM ZIRCONIUM CYCLOSILICATE (LOKELMA) 5 GM PACKET PO SCH (15:41)
[2021-08-31] MEDS: INSULIN (LEVEMIR) 100 UNITS/ML UNITS SQ SCH (06:20)
[2021-08-31] MEDS: INSULIN SLIDING SCALE (NOVOLOG) 1 VIAL SQ SCH ×2 (06:20→12:20)
[2021-08-31] MEDS ORDERED: CHOLECALCIFEROL (VIT D3) 1,000 UNIT (25 MCG) TABLET PO SCH (08:04)
[2021-08-31] MEDS ORDERED: PT OWN MED DRAWER 7, Y5N ONE ×2 (09:05→10:34)
[2021-08-31] MEDS: SODIUM ZIRCONIUM CYCLOSILICATE (LOKELMA) 5 GM PACKET PO SCH (10:27)
[2021-08-31] MEDS: POLYETHYLENE GLYCOL (HEALTHYLAX) 3350 17 GM PACKET PO SCH (10:27)
[2021-08-31] MEDS: ZINC SULFATE 220 MG CAPSULE (FP) PO SCH (10:28)
[2021-08-31] MEDS: ASCORBIC ACID 250 MG TABLET (FP) PO SCH (10:28)
[2021-08-31] MEDS: HEPARIN NA (PORCINE) 5,000 UNITS/ML 1ML VIAL SQ SCH (10:28)
[2021-08-31] MEDS: ALBUTEROL SO4 HFA INHALER IH SCH ×2 (10:28→12:21)
[2021-08-31] MEDS: DEXAMETHASONE SOD PHOSPHATE 4 MG/1 ML VIAL IVPUSH SCH (10:29)
[2021-08-31] MEDS: BUDESONIDE/FORMETEROL FUMARATE 160/4.5 mcg INHALER IH SCH (10:30)
[2021-08-31 14:14] VITALS: BP 116/72; PULSE 69; TEMP 98.4
== END 2021-08-31 16:30 | disposition home or self-care (01) | DRG 177 ==
LOC: JER 14:33 → JERBED 19:07 → J4S 08-24 23:22
PROVIDERS: ATTEND Internal Medicine
PROC: XW033E5 Introduction of Remdesivir Anti-infective into Peripheral Vein, Percutaneous Approach, New Technology Group 5 (ICD-10-PCS; principal; 2021-08-23)
DX: U07.1 COVID-19 (principal); J12.82 Pneumonia due to coronavirus disease 2019; J96.01 Acute respiratory failure with hypoxia; N17.9 Acute kidney failure, unspecified; I50.32 Chronic diastolic (congestive) heart failure; I13.0 Hypertensive heart and chronic kidney disease with heart failure and stage 1 through stage 4 chronic kidney disease, or unspecified chronic kidney disease; E87.2 Acidosis; N18.30 Chronic kidney disease, stage 3 unspecified; R74.01 Elevation of levels of liver transaminase levels; D72.819 Decreased white blood cell count, unspecified; E87.5 Hyperkalemia; I95.9 Hypotension, unspecified; E78.5 Hyperlipidemia, unspecified; I25.10 Atherosclerotic heart disease of native coronary artery without angina pectoris; Z98.61 Coronary angioplasty status; E11.22 Type 2 diabetes mellitus with diabetic chronic kidney disease
CPT/HCPCS: 36415; 71045-TC-FY; 80048; 80053; 82728; 82962; 83036; 83605; 83615; 83735; 83880; 84100; 84132; 84484; 85025; 85027; 85379; 85610; 85651; 85730; 86140; 86769; 87040; 87086; 87804; 93005; 93010; 94660; 94761; 97116-GP; 97161-GP; 99285-25; C9399; C9803; J1644; U0003; U0005

== ENCOUNTER 2023-01-08 09:40 | Emergency (ER) | payer OTHER ==
[2023-01-08 09:48] VITALS: BP 146/82; PULSE 74; RESP 18; TEMP 97.8; BMI 33.2
[2023-01-08 10:22] LABS: HEMATOCRIT 41.1 % (35.4-49); HEMOGLOBIN 14.1 G/dL (11.7-16.9); MCH 30.2 pg (25.7-33.7); MCHC 34.3 g/dl (32.0-35.9); MEAN CELL VOLUME 88.1 fl (80-96); MEAN PLT VOLUME 8.4 fl (7.5-11.1); PLATELET COUNT 139.9 10^3/uL (134-434); RBC 4.66 10^6/uL (4.00-5.60); RDW 15.3 % (11.9-15.9); WHITE BLOOD COUNT 11.4 10^3/uL (4.0-10.8)
[2023-01-08] MEDS ORDERED: ACETAMINOPHEN 1000 MG/100 ML BAG IVPB ONE (10:27)
[2023-01-08] MEDS ORDERED: ACETAMINOPHEN 325 MG TABLET (FP) PO ONE (10:28)
[2023-01-08] MEDS ORDERED: ACETAMINOPHEN 325 MG TABLET (FP) ONE ×2 (10:32)
[2023-01-08 10:33] LABS: ALBUMIN 3.1 g/dl (3.4-5.0); BILIRUBIN,TOTAL 1.2 mg/dl (0.2-1); CALCIUM 8.9 mg/dl (8.5-10); CREATININE 1.3 mg/dl (0.55-1.3); TOT PROT 6.6 g/dl (6.4-8.2); URIC ACID 7.2 mg/dl (2.6-7.2)
[2023-01-08 12:22] LABS: N-TERMINAL BNP 490.9 pg/ml (5-450)
== END 2023-01-08 12:50 | disposition home or self-care (01) ==
LOC: FER 09:40
DX: R22.31 Localized swelling, mass and lump, right upper limb (principal); M79.621 Pain in right upper arm; M10.9 Gout, unspecified
CPT/HCPCS: 36415; 73110-TC-RT-FY; 73130-TC-RT-FY; 80053; 83880; 84550; 85025; 85651; 86140; 93005; 93971; 99285-25